=== PATIENT | female | born 1960 | race Caucasian/White ===

== ENCOUNTER 2018-09-13 14:07 | Emergency (ER) | payer OTHER ==
[~2018-09-13] VITALS: Ht 162.6 cm; Wt 68.0 kg
[~2018-09-13 14:07] MED LIST: ASPI81CH PO; GABA100 PO; INS70/30PN SC; INSDET100 IM; INSUASPI SC; LISI5 PO; METF500C PO; NITR100CA PO; Naprosyn500 MG PO; Norco 10-325 T1 EACH PO; OMEP20ER PO; PRAV20 PO
[2018-09-13 15:04] LABS: BASOPHILS ABSOLUTE AUTO 0.03 K/mm3 (0.00-0.23); BASOPHILS PERCENT AUTO 1 % (0-2); EOSINOPHILS ABSOLUTE AUTO 0.13 K/mm3 (0.00-0.68); EOSINOPHILS PERCENT AUTO 2 % (0-6); Hematocrit 44.8 % (33.0-51.0); Hemoglobin 15.2 g/dL (11.5-16.0); IMMATURE GRAN ABSOLUTE AUTO 0.02 K/mm3 (0.00-0.10); IMMATURE GRAN PERCENT AUTO 0 % (0-1); LYMPHOCYTES ABSOLUTE AUTO 1.78 K/mm3 (0.84-5.20); LYMPHOCYTES PERCENT AUTO 28 % (21-46); MONOCYTES ABSOLUTE AUTO 0.49 K/mm3 (0.16-1.47); MONOCYTES PERCENT AUTO 8 % (4-13); Mean Corpuscular HGB 29.8 pg (26.0-34.0); Mean Corpuscular HGB Conc 33.9 g/dL (31.5-36.5); Mean Corpuscular Volume 88 fL (80-100); Mean Platelet Volume 10.3 fL (9.1-12.4); NEUTROPHILS ABSOLUTE AUTO 3.98 K/mm3 (1.96-9.15); NEUTROPHILS PERCENT AUTO 62 % (41-73); Platelet Count 308 K/mm3 (150-400); RDW Coefficient Variation 12.3 % (11.7-14.2); RDW Standard Deviation 39.8 fL (35.1-46.3); White Blood Cell Count 6.43 K/mm3 (4.00-11.30)
[2018-09-13 15:10] LABS: Alanine Aminotransfer (ALT/SGP 17 U/L (12-78); Albumin, Blood 3.4 g/dL (3.4-5.0); Albumin/Globulin Ratio 0.8 (0.8-1.8); Alk Phos 83 U/L (50-136); Anion Gap 8 mmol/L (6-16); Aspartate Aminotrans (AST/SGOT 12 U/L (12-37); Bilirubin, Total 1.1 mg/dL (0.1-1.0); Blood Urea Nitrogen 12 mg/dL (8-24); Bun/Creatinine Ratio 27.8 (12.0-20.0); CO2, Blood 26 mmol/L (21-32); Chloride, Blood 102 mmol/L (98-108); Creatinine, Blood 0.43 mg/dL (0.40-1.00); Globulin, Blood 4.3 g/dL (2.2-4.0); Glomerular Filtration Rate >60 (60-); Glucose, Blood 308 mg/dL (70-99); Potassium, Blood 3.9 mmol/L (3.5-5.5); Sodium, Blood 136 mmol/L (136-145); Total Protein, Blood 7.7 g/dL (6.4-8.2)
[2018-09-13] MEDS ORDERED: LISI20 PO (15:57)
[2018-09-13] MEDS ORDERED: TOUJEO SOL300 UNIT/1 SC (15:58)
[2018-09-13] MEDS ORDERED: ONDA4ODT MM (16:22)
[2018-09-13] MEDS ORDERED: Augmentin 875-1 EACH PO (16:22)
== END 2018-09-13 17:03 | disposition home or self-care (01) ==
LOC: ER 14:07
PROVIDERS: Physician Assistant
DX: L03.115 Cellulitis of right lower limb (principal); Z79.899 Other long term (current) drug therapy; Z79.82 Long term (current) use of aspirin; Z79.4 Long term (current) use of insulin; E11.9 Type 2 diabetes mellitus without complications; I10 Essential (primary) hypertension
CPT/HCPCS: 36415; 73630; 80053; 82947; 85025; 96365; 96375; 99283-25; J2405; J2543

== ENCOUNTER 2018-10-04 19:48 | Inpatient (IN) | payer OTHER ==
[~2018-10-04] VITALS: Ht 162.6 cm; Wt 75.2 kg
[~2018-10-04 19:48] MED LIST changes: -ASPI81CH PO; +Aspirin EC81 MG PO; +Augmentin 875-1 EACH PO; +CEPH500 PO; -INSUASPI SC; +LISI20 PO; +ONDA4ODT MM; +TOUJEO SOL300 UNIT/1 SC
[2018-10-04 20:57] LABS: BASOPHILS ABSOLUTE AUTO 0.04 K/mm3 (0.00-0.23); BASOPHILS PERCENT AUTO 1 % (0-2); EOSINOPHILS ABSOLUTE AUTO 0.13 K/mm3 (0.00-0.68); EOSINOPHILS PERCENT AUTO 2 % (0-6); Hematocrit 39.9 % (33.0-51.0); Hemoglobin 13.5 g/dL (11.5-16.0); IMMATURE GRAN ABSOLUTE AUTO 0.02 K/mm3 (0.00-0.10); IMMATURE GRAN PERCENT AUTO 0 % (0-1); LYMPHOCYTES ABSOLUTE AUTO 1.88 K/mm3 (0.84-5.20); LYMPHOCYTES PERCENT AUTO 22 % (21-46); MONOCYTES ABSOLUTE AUTO 0.58 K/mm3 (0.16-1.47); MONOCYTES PERCENT AUTO 7 % (4-13); Mean Corpuscular HGB 29.3 pg (26.0-34.0); Mean Corpuscular HGB Conc 33.8 g/dL (31.5-36.5); Mean Corpuscular Volume 87 fL (80-100); Mean Platelet Volume 10.5 fL (9.1-12.4); NEUTROPHILS ABSOLUTE AUTO 5.99 K/mm3 (1.96-9.15); NEUTROPHILS PERCENT AUTO 69 % (41-73); Platelet Count 306 K/mm3 (150-400); RDW Coefficient Variation 12.3 % (11.7-14.2); RDW Standard Deviation 39.5 fL (35.1-46.3); White Blood Cell Count 8.64 K/mm3 (4.00-11.30)
[2018-10-04 21:12] LABS: Alanine Aminotransfer (ALT/SGP 15 U/L (12-78); Albumin, Blood 3.1 g/dL (3.4-5.0); Albumin/Globulin Ratio 0.8 (0.8-1.8); Alk Phos 83 U/L (50-136); Anion Gap 8 mmol/L (6-16); Aspartate Aminotrans (AST/SGOT <3 U/L (12-37); Bilirubin, Total 0.6 mg/dL (0.1-1.0); Blood Urea Nitrogen 18 mg/dL (8-24); Bun/Creatinine Ratio 39.6 (12.0-20.0); CO2, Blood 27 mmol/L (21-32); Calcium, Blood 8.7 mg/dL (8.5-10.1); Chloride, Blood 102 mmol/L (98-108); Creatinine, Blood 0.45 mg/dL (0.40-1.00); Globulin, Blood 3.9 g/dL (2.2-4.0); Glomerular Filtration Rate >60 (60-); Glucose, Blood 277 mg/dL (70-99); Sodium, Blood 137 mmol/L (136-145)
[2018-10-04] MEDS ORDERED: Novolog100 UNIT/2 SC ×2 (21:58→22:22)
[2018-10-04] MEDS ORDERED: Amlodipine Bes2.5 MG PO (21:59)
[2018-10-04] MEDS ORDERED: CLON.1 PO (21:59)
[2018-10-04] MEDS ORDERED: GLIP5ER PO (22:00)
[2018-10-04] MEDS ORDERED: ATEN50 PO (22:00)
[2018-10-04] MEDS ORDERED: Vitamin D2000 UNIT PO (22:02)
--- NOTE | 2018-10-05 04:58 | NUR ---
SHIFT SUMMARY PT NEW ADMIT LAST NIGHT AROUND 2300. AOX4. VSS. DENIES SOB, NAUSEA, PALPATIONS, DIZZINESS. REPORTS "VERY LITTLE PAIN" IN RT FOOT @ 2/10 ON PAIN SCALE, DENIES NEED FOR PAIN MEDICATION & THIS AM PT REPORTS NO PAIN IN FOOT. DORSAL RT FOOT IS RED, HOT TO TOUCH, W/+1 EDEMA & PLANTAR RT FOOT HAS 2CM X 2CM SCABBED WOUND W/O DRAINAGE, PICTURES TAKEN & PLACED IN CHART. PT IND IN ROOM W/STEADY BALANCED GAIT. HAS BEEN NPO SINCE MIDNIGHT PER ORDERS. CALL LIGHT IS IN REACH.
[2018-10-05 05:24] LABS: Hematocrit 38.3 % (33.0-51.0); Hemoglobin 12.8 g/dL (11.5-16.0); Mean Corpuscular HGB 29.2 pg (26.0-34.0); Mean Corpuscular HGB Conc 33.4 g/dL (31.5-36.5); Mean Corpuscular Volume 87 fL (80-100); Mean Platelet Volume 10.4 fL (9.1-12.4); Platelet Count 278 K/mm3 (150-400); RDW Coefficient Variation 12.1 % (11.7-14.2); RDW Standard Deviation 39.1 fL (35.1-46.3); Red Blood Cell Count 4.39 M/mm3 (3.80-5.20); White Blood Cell Count 6.72 K/mm3 (4.00-11.30)
[2018-10-05 05:58] LABS: Alanine Aminotransfer (ALT/SGP 11 U/L (12-78); Albumin, Blood 2.8 g/dL (3.4-5.0); Albumin/Globulin Ratio 0.7 (0.8-1.8); Alk Phos 70 U/L (50-136); Anion Gap 7 mmol/L (6-16); Aspartate Aminotrans (AST/SGOT 5 U/L (12-37); Bilirubin, Total 0.7 mg/dL (0.1-1.0); Blood Urea Nitrogen 14 mg/dL (8-24); Bun/Creatinine Ratio 38.3 (12.0-20.0); CO2, Blood 27 mmol/L (21-32); Calcium, Blood 8.2 mg/dL (8.5-10.1); Chloride, Blood 103 mmol/L (98-108); Creatinine, Blood 0.37 mg/dL (0.40-1.00); Globulin, Blood 3.8 g/dL (2.2-4.0); Glomerular Filtration Rate >60 (60-); Glucose, Blood 247 mg/dL (70-99); Potassium, Blood 3.9 mmol/L (3.5-5.5); Sodium, Blood 137 mmol/L (136-145); Total Protein, Blood 6.6 g/dL (6.4-8.2)
--- NOTE | 2018-10-05 08:20 | NUR ---
PROVIDER CONSULT CONSULT CALLED TO DR LEE, EDITOR TRADE JOURNAL, ON HIS CELL PHONE AT 0819 THIS MORNING.
--- NOTE | 2018-10-05 18:32 | NUR ---
PT TO BE NPO AFTER MIDNIGHT TONIGHT FOR SURGICAL PROCEDURE TOMORROW. NO C/O PAIN OR DISCOMFORT, NO ACUTE CHANGES NOTED THIS SHIFT, WILL CONTINUE TO MONITOR AND REPORT TO ONCOMING RN.
--- NOTE | 2018-10-06 06:48 | NUR ---
10/06/18 0600 NPO FOR SURGERY THIS AFTERNOON. VITALS GOOD THIS AM. HYDRALAZINE ORDERED FOR HYPERTENSION > 160 SYSTOLIC AND WAS GIVEN ONCE THIS SHIFT. SLEPT WELL. DENIED NEED FOR PAIN MEDS THIS SHIFT.
--- NOTE | 2018-10-06 16:10 | NUR ---
PT HAS BEEN TRANSPORTED TO OR FOR SURGICAL PROCEDURE.
--- NOTE | 2018-10-06 16:11 | NUR ---
History, Chart, Medications and Allergies reviewed before start of procedure. Patient confirms NPO status and agrees with scheduled surgery. Lungs clear T/O to Auscultation. PATIENT REMOVED HER RING IN SDS AND IT WILL BE TAKEN BACK TO HER ROOM.
--- NOTE | 2018-10-06 17:59 | NUR ---
PT ESCORTED OUT VIA W/C BY [facility]
--- NOTE | 2018-10-06 18:15 | NUR ---
PT RETURNED TO ROOM FROM PACU. SHE IS AWAKE, ALERT AND ORIENTED, DENIES PAIN AND NAUSEA. ASSISTED INTO BED. PT VOICES HUNGER, DINNER TRAY GIVEN. VITAL SIGNS STABLE. WILL CONTINUE TO MONITOR.
--- NOTE | 2018-10-06 18:33 | NUR ---
PT RETURNED FROM OR, NO C/O OF PAIN OR NAUSEA, AWAKE, ALERT AND ORIENTED, VITAL SIGNS STABLE. NO ACUTE CHANGES NOTED THIS SHIFT, WILL CONTINUE TO MONITOR AND REPORT TO ONCOMING RN
--- NOTE | 2018-10-07 05:57 | NUR ---
SHIFT SUMMARY: POST OP VITALS CONTINUE TO BE WNL. PT NWB TO R FT AND AWARE OF LIMITATIONS. RLE IS ELEVATED ON PILLOWS PER ORDERS. PT HAS MINOR PAIN TO SITE EARLY THIS AM, MEDICATED c 1MG DILAUDID IV WHICH PROVIDES OPTIMAL EFFECT. DRESSING TO R FT IS C/D/I, NO DRESSING CHANGES TO BE DONE UNTIL PT F/U c OUTPATIENT PHYSICIAN, ORDERED. LS CLEAR, RESP E/U ON RA. CBG 278 TONIGHT; ADMINISTERED HUMALOG AND LANTUS PER ORDERS; SEE EMAR. NO OTHER CHANGES TO REPORT. WILL CONT TO MONITOR AND PROVIDE CARE UNTIL PRESUMED BY ONCOMING RN.
[2018-10-07] MEDS ORDERED: ROXICODONE5 MG PO (15:51)
[2018-10-07] MEDS ORDERED: Florastor250 MG PO (15:51)
[2018-10-07] MEDS ORDERED: NOVOLOG FL100 UNIT/1 SC (15:51)
[2018-10-07] MEDS ORDERED: Bactrim Ds Tab1 EACH PO (15:52)
--- NOTE | 2018-10-07 16:56 | NUR ---
10/07/18 1656 Marti Santos CHART VERIFICATIONS, EDITS.
--- NOTE | 2018-10-07 17:00 | NUR ---
PT REPORTED THAT HER RING WAS SENT UP AFTER HER SURGERY BUT SHE COULD NOT LOCATE IT, FOUND THE RIGHT IN THE LOCKED DRAWER AND RETURNED IT TO THE PT.
--- NOTE | 2018-10-07 17:13 | NUR ---
SPOKE WITH DR LEE WHO REPORTS PT IS OK TO DISCHARGE HOME FROM HIS STANDPOINT, PT TO REMAIN NON WEIGHT BEARING AND TO KEEP RIGHT LEG ELEVATED AND DRESSING INTACT UNTIL SEEN IN OFFICE. F/U APPOINTMENT SCHEDULED FOR 10/13. DR WINTERS NOTIFIED OF THIS AND DISCHARGE ORDERS PLACED ALONG WITH HARD SCRIPT FOR OXYCODONE, CRUTCHES, AND SCOOTER. MEDS FAXED TO [facility]. F/U APPT MADE WITH PCP FOR THE . PT REMINDED ON MULTIPLE OCCASIONS T/O THE SHIFT TO NOT BEAR ANY WEIGHT ON RLE. DISCHARGE INSTRUCTIONS REVIEWED WITH PT AND IV DC'D INTACT BY RN STUDENT. PT DC'D HOME AT 1716, ESCORTED OUT VIA W/C.
== END 2018-10-07 17:17 | disposition home or self-care (01) | DRG 617 ==
LOC: ER 19:48 → MEDS 21:45 → ER 22:33 → MEDS 22:46 → ER 22:46 → MEDS 22:46 → ENPENDDIS 10-07 15:15 → MEDS 10-07 17:17
PROVIDERS: Physician Assistant; Podiatrist Foot & Ankle Surgery; ADMIT Internal Medicine
PROC: 0Y6X0Z3 Detachment at Right 5th Toe, Low, Open Approach (ICD-10-PCS; principal; 2018-10-06 17:10)
DX: E11.621 Type 2 diabetes mellitus with foot ulcer (principal); M86.171 Other acute osteomyelitis, right ankle and foot; L03.115 Cellulitis of right lower limb; I10 Essential (primary) hypertension; E78.5 Hyperlipidemia, unspecified; Z79.4 Long term (current) use of insulin; E66.9 Obesity, unspecified; E11.40 Type 2 diabetes mellitus with diabetic neuropathy, unspecified; Z68.25 Body mass index [BMI] 25.0-25.9, adult; L97.514 Non-pressure chronic ulcer of other part of right foot with necrosis of bone
CPT/HCPCS: 36415; 73630; 80053; 82947; 85025; 85027; 88305; 88311; 96365; 99284-25; J0360; J1170; J1650; J2250; J2405; J2543; J2704; J3010; J7050; J7120

== ENCOUNTER 2018-12-28 16:53 | Emergency (ER) | payer OTHER ==
[~2018-12-28] VITALS: Ht 162.6 cm; Wt 73.0 kg
[~2018-12-28 16:53] MED LIST changes: +ATEN50 PO; +Bactrim Ds Tab1 EACH PO; +CLON.1 PO; +Florastor250 MG PO; +GLIP5ER PO; +NOVOLOG FL100 UNIT/1 SC; +Norvasc10 MG PO; +Novolog100 UNIT/2 SC; +ROXICODONE5 MG PO; +Vitamin D2000 UNIT PO
[2018-12-28 17:25] LABS: BASOPHILS ABSOLUTE AUTO 0.02 K/mm3 (0.00-0.23); BASOPHILS PERCENT AUTO 0 % (0-2); EOSINOPHILS ABSOLUTE AUTO 0.12 K/mm3 (0.00-0.68); EOSINOPHILS PERCENT AUTO 2 % (0-6); Hematocrit 43.1 % (33.0-51.0); Hemoglobin 15.1 g/dL (11.5-16.0); IMMATURE GRAN ABSOLUTE AUTO 0.01 K/mm3 (0.00-0.10); IMMATURE GRAN PERCENT AUTO 0 % (0-1); LYMPHOCYTES ABSOLUTE AUTO 1.64 K/mm3 (0.84-5.20); LYMPHOCYTES PERCENT AUTO 29 % (21-46); MONOCYTES ABSOLUTE AUTO 0.37 K/mm3 (0.16-1.47); MONOCYTES PERCENT AUTO 7 % (4-13); Mean Corpuscular Volume 86 fL (80-100); Mean Platelet Volume 10.1 fL (9.1-12.4); NEUTROPHILS ABSOLUTE AUTO 3.41 K/mm3 (1.96-9.15); NEUTROPHILS PERCENT AUTO 61 % (41-73); Platelet Count 274 K/mm3 (150-400); RDW Coefficient Variation 13.1 % (11.7-14.2); RDW Standard Deviation 41.1 fL (35.1-46.3); Red Blood Cell Count 5.04 M/mm3 (3.80-5.20); White Blood Cell Count 5.57 K/mm3 (4.00-11.30)
[2018-12-28 17:45] LABS: International Normalized Ratio 0.94
[2018-12-28 17:59] LABS: Alanine Aminotransfer (ALT/SGP 20 U/L (12-78); Albumin, Blood 3.6 g/dL (3.4-5.0); Alk Phos 90 U/L (50-136); Anion Gap 7 mmol/L (6-16); Aspartate Aminotrans (AST/SGOT 9 U/L (12-37); Bilirubin, Total 1.2 mg/dL (0.1-1.0); Blood Urea Nitrogen 10 mg/dL (8-24); Bun/Creatinine Ratio 28.5 (12.0-20.0); CO2, Blood 24 mmol/L (21-32); Calcium, Blood 8.9 mg/dL (8.5-10.1); Chloride, Blood 104 mmol/L (98-108); Creatinine, Blood 0.35 mg/dL (0.40-1.00); Globulin, Blood 3.7 g/dL (2.2-4.0); Glomerular Filtration Rate >60 (60-); Glucose, Blood 275 mg/dL (70-99); Potassium, Blood 3.4 mmol/L (3.5-5.5); Sodium, Blood 135 mmol/L (136-145); Total Protein, Blood 7.3 g/dL (6.4-8.2)
== END 2018-12-28 20:20 | disposition short-term general hospital (02) ==
LOC: ER 16:53
PROVIDERS: Emergency Medicine
DX: I61.9 Nontraumatic intracerebral hemorrhage, unspecified (principal); I10 Essential (primary) hypertension; E11.9 Type 2 diabetes mellitus without complications; Z79.899 Other long term (current) drug therapy; Z79.82 Long term (current) use of aspirin; Z79.4 Long term (current) use of insulin
CPT/HCPCS: 36415; 51702; 70450; 80053; 85025; 85610; 85730; 93005; 93010; 96365-59; 96366-59; 96375-59; 99285-25; J3010; J7050

== ENCOUNTER 2019-02-08 11:17 | Emergency (ER) | payer OTHER ==
[~2019-02-08] VITALS: Ht 167.6 cm; Wt 83.9 kg
[2019-02-08] MEDS ORDERED: ACET325 PO (11:46)
[2019-02-08] MEDS ORDERED: ADMELOG SO100 UNIT/1 SC (11:46)
[2019-02-08] MEDS ORDERED: Lipitor80 MG PO (11:48)
[2019-02-08] MEDS ORDERED: GABA100 PO (11:49)
[2019-02-08] MEDS ORDERED: HYDRA25 PO (11:50)
[2019-02-08 11:51] LABS: BASOPHILS ABSOLUTE AUTO 0.03 K/mm3 (0.00-0.23); BASOPHILS PERCENT AUTO 0 % (0-2); EOSINOPHILS ABSOLUTE AUTO 0.26 K/mm3 (0.00-0.68); EOSINOPHILS PERCENT AUTO 3 % (0-6); Hematocrit 44.6 % (33.0-51.0); Hemoglobin 15.2 g/dL (11.5-16.0); IMMATURE GRAN ABSOLUTE AUTO 0.02 K/mm3 (0.00-0.10); IMMATURE GRAN PERCENT AUTO 0 % (0-1); LYMPHOCYTES ABSOLUTE AUTO 1.05 K/mm3 (0.84-5.20); LYMPHOCYTES PERCENT AUTO 12 % (21-46); MONOCYTES ABSOLUTE AUTO 0.55 K/mm3 (0.16-1.47); MONOCYTES PERCENT AUTO 6 % (4-13); Mean Corpuscular HGB 29.7 pg (26.0-34.0); Mean Corpuscular HGB Conc 34.1 g/dL (31.5-36.5); Mean Corpuscular Volume 87 fL (80-100); Mean Platelet Volume 10.2 fL (9.1-12.4); NEUTROPHILS ABSOLUTE AUTO 6.77 K/mm3 (1.96-9.15); NEUTROPHILS PERCENT AUTO 78 % (41-73); Platelet Count 260 K/mm3 (150-400); RDW Coefficient Variation 12.5 % (11.7-14.2); RDW Standard Deviation 40.3 fL (35.1-46.3); Red Blood Cell Count 5.11 M/mm3 (3.80-5.20); White Blood Cell Count 8.68 K/mm3 (4.00-11.30)
[2019-02-08] MEDS ORDERED: MIRALAX17 GM PO (11:51)
[2019-02-08] MEDS ORDERED: OXYC5 PO (11:51)
[2019-02-08] MEDS ORDERED: Senna8.6 MG PO (11:52)
[2019-02-08] MEDS ORDERED: SERT25 PO (11:52)
[2019-02-08 12:22] LABS: Troponin I <0.015 ng/mL (0.000-0.040)
[2019-02-08 12:33] LABS: Alanine Aminotransfer (ALT/SGP 20 U/L (12-78); Albumin, Blood 3.9 g/dL (3.4-5.0); Alk Phos 86 U/L (50-136); Anion Gap 9 mmol/L (6-16); Aspartate Aminotrans (AST/SGOT 7 U/L (12-37); Bilirubin, Total 1.4 mg/dL (0.1-1.0); Blood Urea Nitrogen 8 mg/dL (8-24); Bun/Creatinine Ratio 23.4 (12.0-20.0); CO2, Blood 26 mmol/L (21-32); Chloride, Blood 103 mmol/L (98-108); Creatinine, Blood 0.34 mg/dL (0.40-1.00); Globulin, Blood 4.1 g/dL (2.2-4.0); Glomerular Filtration Rate >60 (60-); Glucose, Blood 162 mg/dL (70-99); Potassium, Blood 3.4 mmol/L (3.5-5.5); Sodium, Blood 138 mmol/L (136-145)
[2019-02-08] MEDS ORDERED: Toprol Xl50 MG PO (12:51)
== END 2019-02-08 13:37 | disposition home or self-care (01) ==
LOC: ER 11:17
PROVIDERS: Emergency Medicine
DX: R51 Headache (principal); I10 Essential (primary) hypertension; E11.9 Type 2 diabetes mellitus without complications; Z86.73 Personal history of transient ischemic attack (TIA), and cerebral infarction without residual deficits; E78.5 Hyperlipidemia, unspecified; Z79.899 Other long term (current) drug therapy; Z79.4 Long term (current) use of insulin; Z79.82 Long term (current) use of aspirin
CPT/HCPCS: 36415; 71046; 80053; 84484; 85025; 93005; 93010; 99284-25; A9270

== ENCOUNTER 2019-05-02 18:35 | Emergency (ER) | payer OTHER ==
[~2019-05-02] VITALS: Ht 162.6 cm; Wt 72.6 kg
[~2019-05-02 18:35] MED LIST changes: +ACET325 PO; +ADMELOG SO100 UNIT/1 SC; +HYDRA25 PO; +Lipitor80 MG PO; +MIRALAX17 GM PO; +OXYC5 PO; +SERT25 PO; +Senna8.6 MG PO; +Toprol Xl50 MG PO
[2019-05-02 19:08] LABS: BASOPHILS ABSOLUTE AUTO 0.03 K/mm3 (0.00-0.23); BASOPHILS PERCENT AUTO 1 % (0-2); EOSINOPHILS ABSOLUTE AUTO 0.18 K/mm3 (0.00-0.68); EOSINOPHILS PERCENT AUTO 3 % (0-6); Hematocrit 41.9 % (33.0-51.0); Hemoglobin 14.2 g/dL (11.5-16.0); IMMATURE GRAN ABSOLUTE AUTO 0.01 K/mm3 (0.00-0.10); IMMATURE GRAN PERCENT AUTO 0 % (0-1); LYMPHOCYTES ABSOLUTE AUTO 1.76 K/mm3 (0.84-5.20); LYMPHOCYTES PERCENT AUTO 31 % (21-46); MONOCYTES ABSOLUTE AUTO 0.41 K/mm3 (0.16-1.47); MONOCYTES PERCENT AUTO 7 % (4-13); Mean Corpuscular HGB 29.8 pg (26.0-34.0); Mean Corpuscular HGB Conc 33.9 g/dL (31.5-36.5); Mean Corpuscular Volume 88 fL (80-100); Mean Platelet Volume 10.3 fL (9.1-12.4); NEUTROPHILS ABSOLUTE AUTO 3.31 K/mm3 (1.96-9.15); NEUTROPHILS PERCENT AUTO 58 % (41-73); Platelet Count 276 K/mm3 (150-400); RDW Coefficient Variation 12.6 % (11.7-14.2); RDW Standard Deviation 41.1 fL (35.1-46.3); Red Blood Cell Count 4.76 M/mm3 (3.80-5.20)
[2019-05-02] MEDS ORDERED: ADMELOG SO100 UNIT/1 SC (19:12)
[2019-05-02] MEDS ORDERED: BASAGLAR K100 UNIT/2 SC (19:12)
[2019-05-02] MEDS ORDERED: ATOR80 PO (19:12)
[2019-05-02] MEDS ORDERED: Aspirin EC81 MG PO (19:12)
[2019-05-02] MEDS ORDERED: AMLO10 PO (19:12)
[2019-05-02] MEDS ORDERED: SERT25 PO (19:13)
[2019-05-02] MEDS ORDERED: GABA100 PO (19:13)
[2019-05-02] MEDS ORDERED: LISI20 PO (19:13)
[2019-05-02] MEDS ORDERED: SENNA LAXATIVE8.6 MG PO (19:13)
[2019-05-02] MEDS ORDERED: Vitamin D2000 UNIT PO (19:13)
[2019-05-02 19:28] LABS: Troponin I <0.015 ng/mL (0.000-0.040)
[2019-05-02 19:29] LABS: Alanine Aminotransfer (ALT/SGP 20 U/L (12-78); Albumin, Blood 3.6 g/dL (3.4-5.0); Albumin/Globulin Ratio 0.9 (0.8-1.8); Alk Phos 81 U/L (50-136); Anion Gap 6 mmol/L (6-16); Aspartate Aminotrans (AST/SGOT 17 U/L (12-37); Bilirubin, Total 1.2 mg/dL (0.1-1.0); Blood Urea Nitrogen 17 mg/dL (8-24); Bun/Creatinine Ratio 35.6 (12.0-20.0); CO2, Blood 25 mmol/L (21-32); Calcium, Blood 8.9 mg/dL (8.5-10.1); Chloride, Blood 107 mmol/L (98-108); Creatinine, Blood 0.48 mg/dL (0.40-1.00); Globulin, Blood 4.2 g/dL (2.2-4.0); Glomerular Filtration Rate >60 (60-); Glucose, Blood 151 mg/dL (70-99); Potassium, Blood 3.9 mmol/L (3.5-5.5); Sodium, Blood 138 mmol/L (136-145); Total Protein, Blood 7.8 g/dL (6.4-8.2)
== END 2019-05-02 21:08 | disposition home or self-care (01) ==
LOC: ER 18:35
PROVIDERS: Physician Assistant
DX: I10 Essential (primary) hypertension (principal); E11.9 Type 2 diabetes mellitus without complications; Z79.899 Other long term (current) drug therapy; Z79.4 Long term (current) use of insulin; Z79.82 Long term (current) use of aspirin
CPT/HCPCS: 36415; 71046; 80053; 84484; 85025; 93005; 93010; 96374; 96375; 96376; 99285-25; J0780; J1885

== ENCOUNTER 2019-06-09 14:47 | Emergency (ER) | payer OTHER ==
[~2019-06-09] VITALS: Ht 162.6 cm; Wt 72.6 kg
[~2019-06-09 14:47] MED LIST changes: +AMLO10 PO; +ATOR80 PO; +BASAGLAR K100 UNIT/2 SC; +SENNA LAXATIVE8.6 MG PO
[2019-06-09] MEDS ORDERED: Veetids 500500 MG PO (17:06)
== END 2019-06-09 17:34 | disposition home or self-care (01) ==
LOC: ER 14:47
DX: J02.9 Acute pharyngitis, unspecified (principal); E11.9 Type 2 diabetes mellitus without complications; N17.9 Acute kidney failure, unspecified; I10 Essential (primary) hypertension; Z79.82 Long term (current) use of aspirin; Z79.4 Long term (current) use of insulin; Z79.899 Other long term (current) drug therapy
CPT/HCPCS: 99282

== ENCOUNTER 2019-06-20 10:31 | Emergency (ER) | payer OTHER ==
[~2019-06-20] VITALS: Ht 162.6 cm; Wt 72.6 kg
[~2019-06-20 10:31] MED LIST changes: +Veetids 500500 MG PO
[2019-06-20 11:11] LABS: Source, Urine Clean Catch
[2019-06-20 11:19] LABS: BASOPHILS ABSOLUTE AUTO 0.01 K/mm3 (0.00-0.23); BASOPHILS PERCENT AUTO 0 % (0-2); EOSINOPHILS ABSOLUTE AUTO 0.04 K/mm3 (0.00-0.68); EOSINOPHILS PERCENT AUTO 1 % (0-6); Hematocrit 42.8 % (33.0-51.0); Hemoglobin 14.6 g/dL (11.5-16.0); IMMATURE GRAN ABSOLUTE AUTO 0.01 K/mm3 (0.00-0.10); IMMATURE GRAN PERCENT AUTO 0 % (0-1); LYMPHOCYTES ABSOLUTE AUTO 0.76 K/mm3 (0.84-5.20); LYMPHOCYTES PERCENT AUTO 22 % (21-46); MONOCYTES ABSOLUTE AUTO 0.36 K/mm3 (0.16-1.47); MONOCYTES PERCENT AUTO 10 % (4-13); Mean Corpuscular HGB 29.4 pg (26.0-34.0); Mean Corpuscular HGB Conc 34.1 g/dL (31.5-36.5); Mean Corpuscular Volume 86 fL (80-100); Mean Platelet Volume 10.4 fL (9.1-12.4); NEUTROPHILS ABSOLUTE AUTO 2.27 K/mm3 (1.96-9.15); NEUTROPHILS PERCENT AUTO 66 % (41-73); Platelet Count 186 K/mm3 (150-400); RDW Coefficient Variation 12.4 % (11.7-14.2); RDW Standard Deviation 39.2 fL (35.1-46.3); Red Blood Cell Count 4.97 M/mm3 (3.80-5.20); White Blood Cell Count 3.45 K/mm3 (4.00-11.30)
[2019-06-20 11:20] LABS: Bilirubin, Urine Neg (Neg); Blood, Urine Neg (Neg); Glucose Qualitative, Urine Neg (Neg); Ketones, Urine 1+ (Neg); Leukocyte Esterase, Urine 1+ (Neg); Nitrite, Urine Neg (Neg); Protein, Urine 2+ (Neg); Specific Gravity, Urine 1.025 (1.003-1.022); Urobilinogen, Urine 1+ (Normal)
[2019-06-20 11:34] LABS: Alanine Aminotransfer (ALT/SGP 21 U/L (12-78); Albumin, Blood 3.5 g/dL (3.4-5.0); Albumin/Globulin Ratio 0.9 (0.8-1.8); Alk Phos 80 U/L (50-136); Anion Gap 6 mmol/L (6-16); Aspartate Aminotrans (AST/SGOT 18 U/L (12-37); Blood Urea Nitrogen 12 mg/dL (8-24); Bun/Creatinine Ratio 22.7 (12.0-20.0); CO2, Blood 29 mmol/L (21-32); Calcium, Blood 8.4 mg/dL (8.5-10.1); Chloride, Blood 103 mmol/L (98-108); Creatinine, Blood 0.53 mg/dL (0.40-1.00); Globulin, Blood 4.1 g/dL (2.2-4.0); Glomerular Filtration Rate >60 (60-); Glucose, Blood 151 mg/dL (70-99); Potassium, Blood 3.5 mmol/L (3.5-5.5); Sodium, Blood 138 mmol/L (136-145); Total Protein, Blood 7.6 g/dL (6.4-8.2)
[2019-06-20 11:35] LABS: Appearance, Urine Cloudy (Clear); Color, Urine Yellow (P-Yellow)
[2019-06-20 11:36] LABS: Bacteria Few /hpf; Red Blood Cells, Urine 0-2 /hpf (0-2); Squamous Epithelial Cells Mod /hpf (Few)
== END 2019-06-20 12:34 | disposition home or self-care (01) ==
LOC: ER 10:31
PROVIDERS: Emergency Medicine
DX: J02.8 Acute pharyngitis due to other specified organisms (principal); E86.0 Dehydration; E11.9 Type 2 diabetes mellitus without complications; I10 Essential (primary) hypertension; Z79.899 Other long term (current) drug therapy; Z79.4 Long term (current) use of insulin; Z79.82 Long term (current) use of aspirin; Z86.73 Personal history of transient ischemic attack (TIA), and cerebral infarction without residual deficits
CPT/HCPCS: 36415; 80053; 81001; 83690; 85025; 87081; 87086; 87430; 96360; 99284-25; J7030

== ENCOUNTER 2019-11-10 12:57 | Emergency (ER) | payer OTHER ==
[~2019-11-10] VITALS: Ht 162.6 cm; Wt 68.0 kg
== END 2019-11-10 16:44 | disposition home or self-care (01) ==
LOC: ER 12:57
DX: S09.90XA Unspecified injury of head, initial encounter (principal); S20.212A Contusion of left front wall of thorax, initial encounter; E11.9 Type 2 diabetes mellitus without complications; I10 Essential (primary) hypertension; N17.9 Acute kidney failure, unspecified; Z79.4 Long term (current) use of insulin; Z79.899 Other long term (current) drug therapy; E78.5 Hyperlipidemia, unspecified; Z86.73 Personal history of transient ischemic attack (TIA), and cerebral infarction without residual deficits; W19.XXXA Unspecified fall, initial encounter
CPT/HCPCS: 70450; 71101; 93005; 93010; 99284-25; A9270

== ENCOUNTER → 2019-12-24 | Outpatient (CLI) | payer OTHER ==
[2019-12-24 15:05] LABS: Creatinine, Urine Random 91.6 mg/dL (27.00-270.00); Microalb/Creat Ratio UR, Rand 46.288 mg/g (0.000-30.000); Microalbumin, Random Urine 42.4 mg/L (0.000-20.000)
== END | disposition home or self-care (01) ==
LOC: LAB 11:50 → LAB SHORT 11:50 → LAB FUT 08-11 11:55
PROVIDERS: Family Medicine
DX: E11.65 Type 2 diabetes mellitus with hyperglycemia (principal)
CPT/HCPCS: 82043; 82570

== ENCOUNTER → 2020-09-07 | Outpatient (CLI) | payer OTHER ==
[2020-09-08 15:09] LABS: HPV 16 Negative (Negative); HPV 18 Negative (Negative); HPV OTHER HR TYPES Negative (Negative)
== END | disposition home or self-care (01) ==
LOC: LAB SHORT 13:55
PROVIDERS: Physician Assistant
DX: Z01.419 Encounter for gynecological examination (general) (routine) without abnormal findings (principal)
CPT/HCPCS: 87624; G0123

== ENCOUNTER 2020-11-15 18:17 | Emergency (ER) | payer OTHER ==
[~2020-11-15] VITALS: Ht 162.6 cm; Wt 72.6 kg
[2020-11-15 19:07] LABS: BASOPHILS ABSOLUTE AUTO 0.02 K/mm3 (0.00-0.23); BASOPHILS PERCENT AUTO 0 % (0-2); EOSINOPHILS PERCENT AUTO 3 % (0-6); Hematocrit 39.3 % (33.0-51.0); Hemoglobin 13.5 g/dL (11.5-16.0); IMMATURE GRAN ABSOLUTE AUTO 0.02 K/mm3 (0.00-0.10); IMMATURE GRAN PERCENT AUTO 0 % (0-1); LYMPHOCYTES PERCENT AUTO 33 % (21-46); MONOCYTES ABSOLUTE AUTO 0.44 K/mm3 (0.16-1.47); MONOCYTES PERCENT AUTO 7 % (4-13); Mean Corpuscular HGB 29.5 pg (26.0-34.0); Mean Corpuscular HGB Conc 34.4 g/dL (31.5-36.5); Mean Corpuscular Volume 86 fL (80-100); Mean Platelet Volume 10.1 fL (9.1-12.4); NEUTROPHILS ABSOLUTE AUTO 3.53 K/mm3 (1.96-9.15); NEUTROPHILS PERCENT AUTO 56 % (41-73); Platelet Count 265 K/mm3 (150-400); RDW Coefficient Variation 13.2 % (11.7-14.2); RDW Standard Deviation 41.3 fL (35.1-46.3); Red Blood Cell Count 4.57 M/mm3 (3.80-5.20); White Blood Cell Count 6.31 K/mm3 (4.00-11.30)
[2020-11-15 19:26] LABS: Alanine Aminotransfer (ALT/SGP 35 U/L (12-78); Albumin, Blood 3.5 g/dL (3.4-5.0); Albumin/Globulin Ratio 0.9 (0.8-1.8); Alk Phos 100 U/L (50-136); Anion Gap 7 mmol/L (6-16); Aspartate Aminotrans (AST/SGOT 17 U/L (12-37); Bilirubin, Total 0.7 mg/dL (0.1-1.0); Blood Urea Nitrogen 21 mg/dL (8-24); Bun/Creatinine Ratio 32.3 (12.0-20.0); CO2, Blood 25 mmol/L (21-32); Chloride, Blood 111 mmol/L (98-108); Creatinine, Blood 0.65 mg/dL (0.40-1.00); Globulin, Blood 4.1 g/dL (2.2-4.0); Glomerular Filtration Rate >60 (60-); Glucose, Blood 158 mg/dL (70-99); Potassium, Blood 3.9 mmol/L (3.5-5.5); Sodium, Blood 143 mmol/L (136-145); Total Protein, Blood 7.6 g/dL (6.4-8.2)
[2020-11-15 20:44] LABS: Source, Urine Clean Catch
[2020-11-15 20:47] LABS: Bilirubin, Urine Neg (Neg); Blood, Urine Neg (Neg); Glucose Qualitative, Urine Neg (Neg); Ketones, Urine Neg (Neg); Leukocyte Esterase, Urine 1+ (Neg); Nitrite, Urine Neg (Neg); Protein, Urine Neg (Neg); Urobilinogen, Urine NORM (Normal)
[2020-11-15 20:52] LABS: Appearance, Urine Clear (Clear); Color, Urine Yellow (P-Yellow)
[2020-11-15 20:54] LABS: Bacteria Few /hpf; Red Blood Cells, Urine Not Seen /hpf (0-2); Squamous Epithelial Cells Rare /hpf (Few); White Blood Cells, Urine Rare /hpf (0-5)
== END 2020-11-15 21:45 | disposition home or self-care (01) ==
LOC: ER 18:17
PROVIDERS: Physician Assistant
DX: R10.31 Right lower quadrant pain (principal); I10 Essential (primary) hypertension; E11.9 Type 2 diabetes mellitus without complications; Z79.4 Long term (current) use of insulin; Z79.82 Long term (current) use of aspirin; Z79.899 Other long term (current) drug therapy; Z86.73 Personal history of transient ischemic attack (TIA), and cerebral infarction without residual deficits
CPT/HCPCS: 36415; 74177; 80053; 81001; 85025; 87086; 99284-25; Q9967

== ENCOUNTER 2020-12-15 16:22 | Emergency (ER) | payer OTHER ==
[~2020-12-15] VITALS: Ht 162.6 cm; Wt 72.6 kg
[2020-12-15 16:50] LABS: BASOPHILS ABSOLUTE AUTO 0.06 K/mm3 (0.00-0.23); BASOPHILS PERCENT AUTO 1 % (0-2); EOSINOPHILS ABSOLUTE AUTO 0.34 K/mm3 (0.00-0.68); EOSINOPHILS PERCENT AUTO 4 % (0-6); Hematocrit 40.6 % (33.0-51.0); Hemoglobin 13.7 g/dL (11.5-16.0); IMMATURE GRAN ABSOLUTE AUTO 0.05 K/mm3 (0.00-0.10); IMMATURE GRAN PERCENT AUTO 1 % (0-1); LYMPHOCYTES ABSOLUTE AUTO 2.64 K/mm3 (0.84-5.20); LYMPHOCYTES PERCENT AUTO 27 % (21-46); MONOCYTES ABSOLUTE AUTO 0.62 K/mm3 (0.16-1.47); MONOCYTES PERCENT AUTO 6 % (4-13); Mean Corpuscular HGB 29.7 pg (26.0-34.0); Mean Corpuscular HGB Conc 33.7 g/dL (31.5-36.5); Mean Corpuscular Volume 88 fL (80-100); Mean Platelet Volume 10.4 fL (9.1-12.4); NEUTROPHILS ABSOLUTE AUTO 6.05 K/mm3 (1.96-9.15); NEUTROPHILS PERCENT AUTO 62 % (41-73); Platelet Count 286 K/mm3 (150-400); RDW Coefficient Variation 13.4 % (11.7-14.2); RDW Standard Deviation 42.9 fL (35.1-46.3); Red Blood Cell Count 4.61 M/mm3 (3.80-5.20); White Blood Cell Count 9.76 K/mm3 (4.00-11.30)
[2020-12-15 17:12] LABS: Alanine Aminotransfer (ALT/SGP 29 U/L (12-78); Albumin, Blood 3.5 g/dL (3.4-5.0); Albumin/Globulin Ratio 0.9 (0.8-1.8); Alk Phos 99 U/L (50-136); Anion Gap 3 mmol/L (6-16); Aspartate Aminotrans (AST/SGOT 13 U/L (12-37); Bilirubin, Total 0.9 mg/dL (0.1-1.0); Blood Urea Nitrogen 27 mg/dL (8-24); Bun/Creatinine Ratio 43.1 (12.0-20.0); CO2, Blood 28 mmol/L (21-32); Calcium, Blood 8.8 mg/dL (8.5-10.1); Chloride, Blood 107 mmol/L (98-108); Creatinine, Blood 0.63 mg/dL (0.40-1.00); Globulin, Blood 3.7 g/dL (2.2-4.0); Glomerular Filtration Rate >60 (60-); Glucose, Blood 258 mg/dL (70-99); Potassium, Blood 4.2 mmol/L (3.5-5.5); Sodium, Blood 138 mmol/L (136-145); Total Protein, Blood 7.2 g/dL (6.4-8.2)
== END 2020-12-15 18:08 | disposition home or self-care (01) ==
LOC: ER 16:22
PROVIDERS: Physician Assistant
DX: M86.9 Osteomyelitis, unspecified (principal); E11.9 Type 2 diabetes mellitus without complications; I10 Essential (primary) hypertension; Z79.899 Other long term (current) drug therapy; Z79.4 Long term (current) use of insulin
CPT/HCPCS: 36415; 80053; 85025; 99283

== ENCOUNTER 2021-01-01 08:00 | Day surgery (SDC) | payer OTHER | END 2021-01-01 23:59 | disposition home or self-care (01) | LOC: WOUND 08:00 | DX: E11.621 Type 2 diabetes mellitus with foot ulcer (principal); L97.422 Non-pressure chronic ulcer of left heel and midfoot with fat layer exposed; L97.412 Non-pressure chronic ulcer of right heel and midfoot with fat layer exposed; L89.892 Pressure ulcer of other site, stage 2; E11.42 Type 2 diabetes mellitus with diabetic polyneuropathy; E11.59 Type 2 diabetes mellitus with other circulatory complications; I87.2 Venous insufficiency (chronic) (peripheral) | CPT/HCPCS: A9270; G0463 ==

== ENCOUNTER 2021-01-08 02:57 | Day surgery (SDC) | payer OTHER | END 2021-01-08 23:55 | disposition home or self-care (01) | LOC: WOUND 02:57 | DX: E11.621 Type 2 diabetes mellitus with foot ulcer (principal); L97.522 Non-pressure chronic ulcer of other part of left foot with fat layer exposed; L97.512 Non-pressure chronic ulcer of other part of right foot with fat layer exposed; E11.42 Type 2 diabetes mellitus with diabetic polyneuropathy; E11.59 Type 2 diabetes mellitus with other circulatory complications; I87.2 Venous insufficiency (chronic) (peripheral); I10 Essential (primary) hypertension | CPT/HCPCS: A9270; G0463 ==

== ENCOUNTER 2021-01-22 03:03 | Day surgery (SDC) | payer OTHER | END 2021-01-22 23:04 | disposition home or self-care (01) | LOC: WOUND 03:03 | DX: E11.621 Type 2 diabetes mellitus with foot ulcer (principal); L97.522 Non-pressure chronic ulcer of other part of left foot with fat layer exposed; L89.892 Pressure ulcer of other site, stage 2; E11.42 Type 2 diabetes mellitus with diabetic polyneuropathy; E11.59 Type 2 diabetes mellitus with other circulatory complications; I87.2 Venous insufficiency (chronic) (peripheral); I10 Essential (primary) hypertension | CPT/HCPCS: G0463 ==

== ENCOUNTER 2021-02-03 13:42 | Emergency (ER) | payer OTHER ==
[~2021-02-03] VITALS: Ht 162.6 cm; Wt 72.6 kg
[2021-02-03 14:13] LABS: BASOPHILS ABSOLUTE AUTO 0.03 K/mm3 (0.00-0.23); BASOPHILS PERCENT AUTO 0 % (0-2); EOSINOPHILS ABSOLUTE AUTO 0.12 K/mm3 (0.00-0.68); EOSINOPHILS PERCENT AUTO 1 % (0-6); Hematocrit 39.2 % (33.0-51.0); Hemoglobin 13.2 g/dL (11.5-16.0); IMMATURE GRAN ABSOLUTE AUTO 0.03 K/mm3 (0.00-0.10); IMMATURE GRAN PERCENT AUTO 0 % (0-1); LYMPHOCYTES ABSOLUTE AUTO 1.43 K/mm3 (0.84-5.20); LYMPHOCYTES PERCENT AUTO 13 % (21-46); MONOCYTES PERCENT AUTO 6 % (4-13); Mean Corpuscular HGB Conc 33.7 g/dL (31.5-36.5); Mean Corpuscular Volume 89 fL (80-100); Mean Platelet Volume 9.9 fL (9.1-12.4); NEUTROPHILS ABSOLUTE AUTO 8.64 K/mm3 (1.96-9.15); NEUTROPHILS PERCENT AUTO 79 % (41-73); Platelet Count 325 K/mm3 (150-400); RDW Coefficient Variation 12.7 % (11.7-14.2); RDW Standard Deviation 41.6 fL (35.1-46.3); White Blood Cell Count 10.95 K/mm3 (4.00-11.30)
[2021-02-03 14:47] LABS: Alanine Aminotransfer (ALT/SGP 21 U/L (12-78); Albumin, Blood 3.3 g/dL (3.4-5.0); Albumin/Globulin Ratio 0.8 (0.8-1.8); Alk Phos 63 U/L (50-136); Anion Gap 5 mmol/L (6-16); Aspartate Aminotrans (AST/SGOT 8 U/L (12-37); Bilirubin, Total 1.6 mg/dL (0.1-1.0); Blood Urea Nitrogen 10 mg/dL (8-24); Bun/Creatinine Ratio 20.4 (12.0-20.0); CO2, Blood 26 mmol/L (21-32); Calcium, Blood 8.4 mg/dL (8.5-10.1); Chloride, Blood 102 mmol/L (98-108); Creatinine, Blood 0.49 mg/dL (0.40-1.00); Globulin, Blood 4.3 g/dL (2.2-4.0); Glomerular Filtration Rate >60 (60-); Glucose, Blood 191 mg/dL (70-99); Potassium, Blood 3.9 mmol/L (3.5-5.5); Sodium, Blood 133 mmol/L (136-145); Total Protein, Blood 7.6 g/dL (6.4-8.2)
[2021-02-03] MEDS ORDERED: CEPH500 PO (15:25)
== END 2021-02-03 15:33 | disposition home or self-care (01) ==
LOC: ER 13:42
PROVIDERS: Student in an Organized Health Care Education/Training Program
DX: L03.032 Cellulitis of left toe (principal); E11.621 Type 2 diabetes mellitus with foot ulcer; L97.521 Non-pressure chronic ulcer of other part of left foot limited to breakdown of skin; I10 Essential (primary) hypertension; E78.5 Hyperlipidemia, unspecified; Z88.8 Allergy status to other drugs, medicaments and biological substances; Z79.899 Other long term (current) drug therapy; Z79.4 Long term (current) use of insulin; Z79.82 Long term (current) use of aspirin; Z20.822 Contact with and (suspected) exposure to COVID-19
CPT/HCPCS: 36415; 80053; 83605; 85025; 99283

== ENCOUNTER 2021-02-05 00:51 | Day surgery (SDC) | payer OTHER ==
[~2021-02-05 00:51] MED LIST changes: +ADMELOG SO100 UNIT/2; +BASAGLAR K100 UNIT/1 SC; -BASAGLAR K100 UNIT/2 SC
== END 2021-02-05 23:03 | disposition home or self-care (01) ==
LOC: WOUND 00:51
DX: E11.621 Type 2 diabetes mellitus with foot ulcer (principal); L97.422 Non-pressure chronic ulcer of left heel and midfoot with fat layer exposed; L97.522 Non-pressure chronic ulcer of other part of left foot with fat layer exposed; L97.512 Non-pressure chronic ulcer of other part of right foot with fat layer exposed; E11.42 Type 2 diabetes mellitus with diabetic polyneuropathy; I87.2 Venous insufficiency (chronic) (peripheral); I10 Essential (primary) hypertension; Z88.8 Allergy status to other drugs, medicaments and biological substances
CPT/HCPCS: 87071; 87075; 87205; A9270

== ENCOUNTER 2021-02-07 09:41 | Day surgery (SDC) | payer OTHER ==
--- NOTE | 2021-02-07 10:45 | NUR ---
CALLED DR. LINDA ELAM OFFICE AND LEFT RESULTS OF ELEVATED BP'S AND PULSE. PT STATES NO H/A OR VISUAL CHANGES. PT ALSO STATES SHE TOOK HER PB MED THIS AM.
[2021-02-07 10:49] LABS: BASOPHILS ABSOLUTE AUTO 0.03 K/mm3 (0.00-0.23); BASOPHILS PERCENT AUTO 1 % (0-2); EOSINOPHILS ABSOLUTE AUTO 0.22 K/mm3 (0.00-0.68); EOSINOPHILS PERCENT AUTO 4 % (0-6); Hematocrit 38.9 % (33.0-51.0); Hemoglobin 12.9 g/dL (11.5-16.0); IMMATURE GRAN ABSOLUTE AUTO 0.02 K/mm3 (0.00-0.10); IMMATURE GRAN PERCENT AUTO 0 % (0-1); LYMPHOCYTES PERCENT AUTO 24 % (21-46); MONOCYTES ABSOLUTE AUTO 0.41 K/mm3 (0.16-1.47); MONOCYTES PERCENT AUTO 7 % (4-13); Mean Corpuscular HGB Conc 33.2 g/dL (31.5-36.5); Mean Corpuscular Volume 91 fL (80-100); Mean Platelet Volume 9.5 fL (9.1-12.4); NEUTROPHILS PERCENT AUTO 65 % (41-73); Platelet Count 386 K/mm3 (150-400); RDW Coefficient Variation 12.8 % (11.7-14.2); RDW Standard Deviation 42.5 fL (35.1-46.3); White Blood Cell Count 6.28 K/mm3 (4.00-11.30)
[2021-02-07 11:00] LABS: Alanine Aminotransfer (ALT/SGP 25 U/L (12-78); Albumin, Blood 3.2 g/dL (3.4-5.0); Albumin/Globulin Ratio 0.7 (0.8-1.8); Alk Phos 69 U/L (50-136); Anion Gap 4 mmol/L (6-16); Aspartate Aminotrans (AST/SGOT 15 U/L (12-37); Bilirubin, Total 0.6 mg/dL (0.1-1.0); Blood Urea Nitrogen 13 mg/dL (8-24); Bun/Creatinine Ratio 24.6 (12.0-20.0); CO2, Blood 31 mmol/L (21-32); Calcium, Blood 9.3 mg/dL (8.5-10.1); Chloride, Blood 104 mmol/L (98-108); Creatinine, Blood 0.53 mg/dL (0.40-1.00); Globulin, Blood 4.8 g/dL (2.2-4.0); Glomerular Filtration Rate >60 (60-); Glucose, Blood 190 mg/dL (70-99); Potassium, Blood 3.7 mmol/L (3.5-5.5); Sodium, Blood 139 mmol/L (136-145)
== END 2021-02-07 10:35 | disposition home or self-care (01) ==
LOC: ATC 09:41
PROVIDERS: Nurse Practitioner Family
DX: E11.621 Type 2 diabetes mellitus with foot ulcer (principal); L89.892 Pressure ulcer of other site, stage 2; E11.59 Type 2 diabetes mellitus with other circulatory complications; E11.42 Type 2 diabetes mellitus with diabetic polyneuropathy; E11.51 Type 2 diabetes mellitus with diabetic peripheral angiopathy without gangrene; I25.10 Atherosclerotic heart disease of native coronary artery without angina pectoris; I50.9 Heart failure, unspecified; Z79.4 Long term (current) use of insulin; Z88.8 Allergy status to other drugs, medicaments and biological substances
CPT/HCPCS: 80053; 85025; 86140; J0696

== ENCOUNTER 2021-02-08 02:54 | Day surgery (SDC) | payer OTHER | END 2021-02-08 23:11 | disposition home or self-care (01) | LOC: WOUND 02:54 | DX: E11.621 Type 2 diabetes mellitus with foot ulcer (principal); L97.522 Non-pressure chronic ulcer of other part of left foot with fat layer exposed; L89.892 Pressure ulcer of other site, stage 2; L03.032 Cellulitis of left toe; E11.42 Type 2 diabetes mellitus with diabetic polyneuropathy; E11.59 Type 2 diabetes mellitus with other circulatory complications; I87.2 Venous insufficiency (chronic) (peripheral) ==

== ENCOUNTER 2021-02-10 13:37 | Emergency (ER) | payer OTHER ==
[~2021-02-10] VITALS: Ht 162.6 cm; Wt 72.6 kg
[2021-02-10 14:40] LABS: BASOPHILS ABSOLUTE AUTO 0.03 K/mm3 (0.00-0.23); BASOPHILS PERCENT AUTO 1 % (0-2); EOSINOPHILS ABSOLUTE AUTO 0.27 K/mm3 (0.00-0.68); EOSINOPHILS PERCENT AUTO 4 % (0-6); Hematocrit 36.2 % (33.0-51.0); IMMATURE GRAN ABSOLUTE AUTO 0.02 K/mm3 (0.00-0.10); IMMATURE GRAN PERCENT AUTO 0 % (0-1); LYMPHOCYTES ABSOLUTE AUTO 1.67 K/mm3 (0.84-5.20); LYMPHOCYTES PERCENT AUTO 26 % (21-46); MONOCYTES ABSOLUTE AUTO 0.41 K/mm3 (0.16-1.47); MONOCYTES PERCENT AUTO 6 % (4-13); Mean Corpuscular HGB 29.9 pg (26.0-34.0); Mean Corpuscular HGB Conc 33.1 g/dL (31.5-36.5); Mean Corpuscular Volume 90 fL (80-100); Mean Platelet Volume 9.2 fL (9.1-12.4); NEUTROPHILS ABSOLUTE AUTO 4.09 K/mm3 (1.96-9.15); NEUTROPHILS PERCENT AUTO 63 % (41-73); Platelet Count 400 K/mm3 (150-400); RDW Coefficient Variation 12.7 % (11.7-14.2); RDW Standard Deviation 41.9 fL (35.1-46.3); Red Blood Cell Count 4.02 M/mm3 (3.80-5.20); White Blood Cell Count 6.49 K/mm3 (4.00-11.30)
== END 2021-02-10 15:07 | disposition home or self-care (01) ==
LOC: ER 13:37
PROVIDERS: Physician Assistant
DX: R23.3 Spontaneous ecchymoses (principal); I10 Essential (primary) hypertension; E11.9 Type 2 diabetes mellitus without complications; Z86.73 Personal history of transient ischemic attack (TIA), and cerebral infarction without residual deficits; Z79.899 Other long term (current) drug therapy; Z79.4 Long term (current) use of insulin; Z79.82 Long term (current) use of aspirin
CPT/HCPCS: 85025; 99283

== ENCOUNTER 2021-02-13 03:26 | Day surgery (SDC) | payer OTHER | END 2021-02-13 13:40 | disposition home or self-care (01) | LOC: ATC 03:26 | DX: E11.621 Type 2 diabetes mellitus with foot ulcer (principal); L97.909 Non-pressure chronic ulcer of unspecified part of unspecified lower leg with unspecified severity; L89.892 Pressure ulcer of other site, stage 2; E11.42 Type 2 diabetes mellitus with diabetic polyneuropathy; E11.59 Type 2 diabetes mellitus with other circulatory complications | CPT/HCPCS: 99211 ==

== ENCOUNTER 2021-02-13 03:58 | Day surgery (SDC) | payer OTHER | END 2021-02-13 23:39 | disposition home or self-care (01) | LOC: WOUND 03:58 | DX: E11.621 Type 2 diabetes mellitus with foot ulcer (principal); L97.522 Non-pressure chronic ulcer of other part of left foot with fat layer exposed; L97.512 Non-pressure chronic ulcer of other part of right foot with fat layer exposed; L89.892 Pressure ulcer of other site, stage 2; L03.032 Cellulitis of left toe; E11.42 Type 2 diabetes mellitus with diabetic polyneuropathy; E11.59 Type 2 diabetes mellitus with other circulatory complications; I87.2 Venous insufficiency (chronic) (peripheral); I10 Essential (primary) hypertension | CPT/HCPCS: A9270; G0463 ==

== ENCOUNTER 2021-02-20 14:01 | Inpatient (IN) | payer OTHER ==
[~2021-02-20] VITALS: Ht 162.6 cm; Wt 72.6 kg
[2021-02-20 14:25] LABS: BASOPHILS ABSOLUTE AUTO 0.04 K/mm3 (0.00-0.23); BASOPHILS PERCENT AUTO 1 % (0-2); EOSINOPHILS ABSOLUTE AUTO 0.24 K/mm3 (0.00-0.68); EOSINOPHILS PERCENT AUTO 3 % (0-6); Hematocrit 38.9 % (33.0-51.0); IMMATURE GRAN ABSOLUTE AUTO 0.02 K/mm3 (0.00-0.10); IMMATURE GRAN PERCENT AUTO 0 % (0-1); LYMPHOCYTES ABSOLUTE AUTO 2.03 K/mm3 (0.84-5.20); LYMPHOCYTES PERCENT AUTO 28 % (21-46); MONOCYTES ABSOLUTE AUTO 0.47 K/mm3 (0.16-1.47); MONOCYTES PERCENT AUTO 7 % (4-13); Mean Corpuscular HGB 29.8 pg (26.0-34.0); Mean Corpuscular HGB Conc 33.4 g/dL (31.5-36.5); Mean Corpuscular Volume 89 fL (80-100); Mean Platelet Volume 9.3 fL (9.1-12.4); NEUTROPHILS ABSOLUTE AUTO 4.35 K/mm3 (1.96-9.15); NEUTROPHILS PERCENT AUTO 61 % (41-73); Platelet Count 392 K/mm3 (150-400); RDW Coefficient Variation 13.1 % (11.7-14.2); RDW Standard Deviation 42.7 fL (35.1-46.3); Red Blood Cell Count 4.36 M/mm3 (3.80-5.20); White Blood Cell Count 7.15 K/mm3 (4.00-11.30)
[2021-02-20 14:35] LABS: Source, Urine Clean Catch
[2021-02-20 14:41] LABS: Appearance, Urine Clear (Clear); Bilirubin, Urine Neg (Neg); Blood, Urine Neg (Neg); Color, Urine Yellow (P-Yellow); Glucose Qualitative, Urine Neg (Neg); Ketones, Urine Neg (Neg); Leukocyte Esterase, Urine Neg (Neg); Nitrite, Urine Neg (Neg); Protein, Urine Neg (Neg); Specific Gravity, Urine 1.025 (1.003-1.022); Urobilinogen, Urine 1+ (Normal)
[2021-02-20 14:44] LABS: Alanine Aminotransfer (ALT/SGP 40 U/L (12-78); Albumin, Blood 3.3 g/dL (3.4-5.0); Albumin/Globulin Ratio 0.7 (0.8-1.8); Alk Phos 68 U/L (50-136); Anion Gap 4 mmol/L (6-16); Aspartate Aminotrans (AST/SGOT 21 U/L (12-37); Bilirubin, Total 0.8 mg/dL (0.1-1.0); Blood Urea Nitrogen 13 mg/dL (8-24); Bun/Creatinine Ratio 21.2 (12.0-20.0); CO2, Blood 27 mmol/L (21-32); Calcium, Blood 8.7 mg/dL (8.5-10.1); Chloride, Blood 106 mmol/L (98-108); Creatinine, Blood 0.61 mg/dL (0.40-1.00); Globulin, Blood 4.7 g/dL (2.2-4.0); Glomerular Filtration Rate >60 (60-); Glucose, Blood 160 mg/dL (70-99); Potassium, Blood 4.3 mmol/L (3.5-5.5); Sodium, Blood 137 mmol/L (136-145)
[2021-02-20 14:51] LABS: U Amphetamine Screen Not Detected; U Barbituate Screen Not Detected; U Benzodiazapine Screen DETECTED; U Buprenorphine Screen Not Detected; U Cannabinoids Screen Not Detected; U Cocaine Screen Not Detected; U Methadone Screen Not Detected; U Methamphetamine Screen Not Detected; U Opiates Screen Not Detected; U Oxycodone Screen Not Detected; U Phencyclidine Screen Not Detected; U Propoxyphene Screen Not Detected
[2021-02-20 17:30] LABS: Source, Urine Clean Catch
[2021-02-20 17:43] LABS: Appearance, Urine Clear (Clear); Bilirubin, Urine Neg (Neg); Blood, Urine Neg (Neg); Glucose Qualitative, Urine 2+ (Neg); Ketones, Urine 1+ (Neg); Leukocyte Esterase, Urine Neg (Neg); Nitrite, Urine Neg (Neg); Protein, Urine Neg (Neg); Urobilinogen, Urine NORM (Normal)
[2021-02-20 17:55] LABS: Color, Urine Yellow (P-Yellow)
[2021-02-20 18:52] LABS: SARS-Cov-2 (COVID-19) PCR, MMC NEGATIVE (NEGATIVE)
[2021-02-20 19:59] LABS: CHOL/HDL RATIO 3.4; Cholesterol 178 mg/dL (50-200); HDL Cholesterol 52 mg/dL (>39); Low Density Lipoprotein Chol 104 mg/dL (0-110); Triglycerides 112 mg/dL (30-160); Very Low Density Lipoprot Chol 22 mg/dL (6-32)
[2021-02-21 04:44] LABS: BASOPHILS ABSOLUTE AUTO 0.01 K/mm3 (0.00-0.23); BASOPHILS PERCENT AUTO 0 % (0-2); EOSINOPHILS ABSOLUTE AUTO 0.02 K/mm3 (0.00-0.68); EOSINOPHILS PERCENT AUTO 0 % (0-6); Hematocrit 39.6 % (33.0-51.0); Hemoglobin 13.6 g/dL (11.5-16.0); IMMATURE GRAN ABSOLUTE AUTO 0.02 K/mm3 (0.00-0.10); IMMATURE GRAN PERCENT AUTO 0 % (0-1); LYMPHOCYTES ABSOLUTE AUTO 1.32 K/mm3 (0.84-5.20); LYMPHOCYTES PERCENT AUTO 16 % (21-46); MONOCYTES ABSOLUTE AUTO 0.46 K/mm3 (0.16-1.47); MONOCYTES PERCENT AUTO 5 % (4-13); Mean Corpuscular HGB 30.3 pg (26.0-34.0); Mean Corpuscular HGB Conc 34.3 g/dL (31.5-36.5); Mean Corpuscular Volume 88 fL (80-100); Mean Platelet Volume 9.4 fL (9.1-12.4); NEUTROPHILS ABSOLUTE AUTO 6.69 K/mm3 (1.96-9.15); NEUTROPHILS PERCENT AUTO 79 % (41-73); Platelet Count 415 K/mm3 (150-400); RDW Coefficient Variation 13.1 % (11.7-14.2); Red Blood Cell Count 4.49 M/mm3 (3.80-5.20); White Blood Cell Count 8.52 K/mm3 (4.00-11.30)
[2021-02-21 05:07] LABS: Alanine Aminotransfer (ALT/SGP 40 U/L (12-78); Albumin, Blood 3.3 g/dL (3.4-5.0); Albumin/Globulin Ratio 0.7 (0.8-1.8); Alk Phos 73 U/L (50-136); Anion Gap 7 mmol/L (6-16); Aspartate Aminotrans (AST/SGOT 20 U/L (12-37); Bilirubin, Total 1.1 mg/dL (0.1-1.0); Blood Urea Nitrogen 13 mg/dL (8-24); Bun/Creatinine Ratio 25.6 (12.0-20.0); CO2, Blood 26 mmol/L (21-32); Calcium, Blood 9.2 mg/dL (8.5-10.1); Chloride, Blood 101 mmol/L (98-108); Creatinine, Blood 0.51 mg/dL (0.40-1.00); Globulin, Blood 4.8 g/dL (2.2-4.0); Glomerular Filtration Rate >60 (60-); Glucose, Blood 164 mg/dL (70-99); Potassium, Blood 3.6 mmol/L (3.5-5.5); Sodium, Blood 134 mmol/L (136-145); Total Protein, Blood 8.1 g/dL (6.4-8.2)
--- NOTE | 2021-02-21 06:44 | NUR ---
New admit. Pt has some L sided deficits from previous stroke. Pt can feel and move L side with moderate cooker cleaner strength and dorsiflexion on the Left side. she can wiggle and feelher toes and fingures on the Left side. Right side is flaccid. Pt cannot feel toes and cannot follow commannds on the Right arm not R leg. Pt states she can feel my touch on the R arm. Pt is using a bed antony and is on bedrest at this time. Swallows pills well with water. Speech is a little delayed. Can express needs. Call light within reach. Bed in lowest position.
--- NOTE | 2021-02-21 07:19 | NUR ---
PATIENT OFF UNIT FOR MRI.
--- NOTE | 2021-02-21 16:18 | NUR ---
DISCHARGE PLANNING: SPOKE TO PATIENT'S DAUGHTER KADEN BY PHONE, GAVE UPDATE. SHE ASKS THAT SHE BE CALLED WITH D/C PLANS: [phone].
--- NOTE | 2021-02-21 19:56 | NUR ---
SHIFT SUMMARY: SWALLOW EVAL COMPLETED, RECS ORDERED. NO CHANGES TO NEURO EXAM THROUGHOUT THE DAY: R SIDE FLACCID, L FACIAL DROOP, HAVING HORIZONTAL AND VERTICAL NYSTAGMUS, SLIGHT DIZZINESS WITH MOVEMENT. WORKED WITH PT/OT. MRI AND CARDIAC ECHO COMPLETE. TOLERATING PO INTAKE. GAVE TELEPHONE UPDATES TO PT'S MOTHER, DAUGHTER, AND SISTER.
[2021-02-22 04:43] LABS: BASOPHILS ABSOLUTE AUTO 0.02 K/mm3 (0.00-0.23); BASOPHILS PERCENT AUTO 0 % (0-2); EOSINOPHILS ABSOLUTE AUTO 0.09 K/mm3 (0.00-0.68); EOSINOPHILS PERCENT AUTO 1 % (0-6); Hematocrit 42.6 % (33.0-51.0); Hemoglobin 14.2 g/dL (11.5-16.0); IMMATURE GRAN ABSOLUTE AUTO 0.02 K/mm3 (0.00-0.10); IMMATURE GRAN PERCENT AUTO 0 % (0-1); LYMPHOCYTES ABSOLUTE AUTO 1.02 K/mm3 (0.84-5.20); LYMPHOCYTES PERCENT AUTO 12 % (21-46); MONOCYTES ABSOLUTE AUTO 0.44 K/mm3 (0.16-1.47); MONOCYTES PERCENT AUTO 5 % (4-13); Mean Corpuscular HGB 29.6 pg (26.0-34.0); Mean Corpuscular HGB Conc 33.3 g/dL (31.5-36.5); Mean Corpuscular Volume 89 fL (80-100); Mean Platelet Volume 9.9 fL (9.1-12.4); NEUTROPHILS PERCENT AUTO 82 % (41-73); Platelet Count 431 K/mm3 (150-400); RDW Coefficient Variation 13.2 % (11.7-14.2); RDW Standard Deviation 42.7 fL (35.1-46.3); Red Blood Cell Count 4.79 M/mm3 (3.80-5.20); White Blood Cell Count 8.89 K/mm3 (4.00-11.30)
[2021-02-22 05:09] LABS: Alanine Aminotransfer (ALT/SGP 35 U/L (12-78); Albumin, Blood 3.2 g/dL (3.4-5.0); Albumin/Globulin Ratio 0.7 (0.8-1.8); Alk Phos 73 U/L (50-136); Anion Gap 5 mmol/L (6-16); Aspartate Aminotrans (AST/SGOT 18 U/L (12-37); Blood Urea Nitrogen 16 mg/dL (8-24); Bun/Creatinine Ratio 30.7 (12.0-20.0); CO2, Blood 28 mmol/L (21-32); Calcium, Blood 9.3 mg/dL (8.5-10.1); Chloride, Blood 100 mmol/L (98-108); Creatinine, Blood 0.52 mg/dL (0.40-1.00); Globulin, Blood 4.9 g/dL (2.2-4.0); Glomerular Filtration Rate >60 (60-); Glucose, Blood 206 mg/dL (70-99); Magnesium, Blood 2.3 mg/dL (1.6-2.4); Phosphorus, Blood 3.4 mg/dL (2.5-4.9); Potassium, Blood 3.6 mmol/L (3.5-5.5); Sodium, Blood 133 mmol/L (136-145); Total Protein, Blood 8.1 g/dL (6.4-8.2)
--- NOTE | 2021-02-22 06:32 | NUR ---
SHIFT SUMMARY PT HAD A DIFFICULT TIME GETTING COMFORTABLE THIS EVENING. REPOSITIONED FREQUENTLY. PT REMAINS MOSTLY FLACCID TO R SIDE, MINIMAL MOVEMENT IN RLE. SLURRED SPEECH AND LEFT SIDED FACIAL DROOP. NYSTAGMUS. HAD ONE EPISODE OF EMESIS THIS EVENING. DENIED NAUSEA AFTER EMESIS. HOWEVER PT STATED THAT SHE FREQUENTLY FEELS DIZZY. BED BATH GIVEN THIS EVENING. ULCERS NOTED TO LEFT TOES. VITAL SIGNS STABLE. WILL CONTINUE TO MONITOR.
--- NOTE | 2021-02-22 18:19 | NUR ---
Shift Summary, The patient is A/OX4 to person, place, time and event. The patient is pleasent and cooperative with care. She was tired today and seemed withdrawn. The patient is bed bound. She requires assistance adjusting her position because she is unable to tinner automatic her right arm and has decreased ROM of right leg. Neuro check remain unchanged. The patient has c/o nausea throughout the day but does not want nausea medications. She has eaten small amounts of her dinner but her intake in low and she stated that she food is bland. She reffused to work with PT but this nurse talked with the patient and we set a goal to work with PT but stop if she feels too nauseous and the patient agreed and tollerated well. The patient was able to lift her right leg today. The patient is currently lying in bed watching tv.
[2021-02-23 04:56] LABS: BASOPHILS ABSOLUTE AUTO 0.02 K/mm3 (0.00-0.23); BASOPHILS PERCENT AUTO 0 % (0-2); EOSINOPHILS ABSOLUTE AUTO 0.12 K/mm3 (0.00-0.68); EOSINOPHILS PERCENT AUTO 2 % (0-6); Hematocrit 43.1 % (33.0-51.0); Hemoglobin 14.3 g/dL (11.5-16.0); IMMATURE GRAN ABSOLUTE AUTO 0.03 K/mm3 (0.00-0.10); IMMATURE GRAN PERCENT AUTO 0 % (0-1); LYMPHOCYTES ABSOLUTE AUTO 1.35 K/mm3 (0.84-5.20); LYMPHOCYTES PERCENT AUTO 17 % (21-46); MONOCYTES ABSOLUTE AUTO 0.49 K/mm3 (0.16-1.47); MONOCYTES PERCENT AUTO 6 % (4-13); Mean Corpuscular HGB 29.7 pg (26.0-34.0); Mean Corpuscular HGB Conc 33.2 g/dL (31.5-36.5); Mean Corpuscular Volume 90 fL (80-100); Mean Platelet Volume 9.6 fL (9.1-12.4); NEUTROPHILS ABSOLUTE AUTO 6.01 K/mm3 (1.96-9.15); NEUTROPHILS PERCENT AUTO 75 % (41-73); Platelet Count 433 K/mm3 (150-400); RDW Coefficient Variation 13.4 % (11.7-14.2); RDW Standard Deviation 43.8 fL (35.1-46.3); Red Blood Cell Count 4.81 M/mm3 (3.80-5.20); White Blood Cell Count 8.02 K/mm3 (4.00-11.30)
[2021-02-23 05:34] LABS: Alanine Aminotransfer (ALT/SGP 31 U/L (12-78); Albumin, Blood 3.1 g/dL (3.4-5.0); Albumin/Globulin Ratio 0.7 (0.8-1.8); Alk Phos 72 U/L (50-136); Anion Gap 8 mmol/L (6-16); Aspartate Aminotrans (AST/SGOT 17 U/L (12-37); Blood Urea Nitrogen 23 mg/dL (8-24); Bun/Creatinine Ratio 43.5 (12.0-20.0); CO2, Blood 26 mmol/L (21-32); Calcium, Blood 9.1 mg/dL (8.5-10.1); Chloride, Blood 100 mmol/L (98-108); Creatinine, Blood 0.53 mg/dL (0.40-1.00); Globulin, Blood 4.7 g/dL (2.2-4.0); Glomerular Filtration Rate >60 (60-); Glucose, Blood 195 mg/dL (70-99); Magnesium, Blood 2.2 mg/dL (1.6-2.4); Phosphorus, Blood 3.8 mg/dL (2.5-4.9); Potassium, Blood 3.9 mmol/L (3.5-5.5); Sodium, Blood 134 mmol/L (136-145); Total Protein, Blood 7.8 g/dL (6.4-8.2)
--- NOTE | 2021-02-23 06:14 | NUR ---
No acute changes or significant events occurred overnight
--- NOTE | 2021-02-23 19:31 | NUR ---
sHIFT Summary, The patient is A/Ox4 TO person, place, time and event. The patient was pleasent and cooperative with care. She had a bright affact this shift, and when asked she stated she felt much better since working with physcial therapy and being able to lift her right leg. The patient is bed ridden and she has left sided weaknes from hx of CVA and LUE/LLE she does not have sensation in. She is unable to move her RUE. The patient can feed herself with minimal assistance setting up her tray. She needed to be repositioned multiple times throughout the shift to assist with her right side. She ate better today during meals then yesterday and requested extra snacks. The patient rerquested medication for a BM and she was medicated per EMAR but she did not have a BM this shift. No changes in neuro defficits this shift. The patient is currently sleeping.
--- NOTE | 2021-02-24 17:48 | NUR ---
SHIFT SUMMARY PATIENT IS ALERT AND ORIENTED. HAS A RIGHT SIDED DEFICIT, WITH SLURRED SPEECH. THE PATIENT WILL CALL APPROPRIATELY. THE PATIENT'S BLOOD PRESSURE HAS BEEN MONITORED THROUGHOOUT THIS SHIFT AND MEDICATED PER THE MAR. PATIENT WORKED WITH PHYSICAL THERAPY THIS SHIFT. THE PATIENT WILL POSSIBLY DISCHARGE TO A SNF. NO ACUTE CHANGES THIS SHIFT.
--- NOTE | 2021-02-25 06:48 | NUR ---
PATIENT COMPLAINS OFF STUFFY NOSE AND CONGESTION RELATED TO SEASONAL ALLERGIES. MD CALLED AND ValerieYRTEIrma ORDERED. PHARMACY ONLY CARRY THE EXCHANGE, CLARITIN. SHE WILL START CLARITIN 10MG TODAY. SHE WAS NPO FOR LABS. LABS COLLECTED. PATIENT CAN RESUME DIET. NO OTHER CHANGES IN CONDITION NOTED OVERNIGHT. NO SIGNIFICANT EVENTS NOTED.
--- NOTE | 2021-02-25 15:50 | NUR ---
Referred by pt's step mother to make a visit to pt. Pt presented laying in bed after just having a stroke. Pt appeared weary and did not speak much. Due to the stroke pt struggle to speak but got out what she could. I offered a prayer and pt shared she was grateful for the prayer.
--- NOTE | 2021-02-25 18:34 | NUR ---
SHIFT SUMMARY PATIENT IS ALERT AND ORIENTED, AND COOPERATIVE WITH CARE. PATIENT HAS BEEN HAVING A POOR APPETITE THIS SHIFT. PATIENT STATES SHE ALWAYS EATS POORLY EVEN AT HOME. THIS NURSE STATED TO THE PATIENT THE IMPORTANCE OF PROPER NUTRITION AND HEALING. PATIENT HAS BEEN TURNED Q2 THIS SHIFT. NO ACUTE CHANGES, WILL CONTINUE TO MONITOR UNTIL SHIFT REPORT.
--- NOTE | 2021-02-26 05:36 | NUR ---
BIOMEDICAL ANALYTICAL SCIENTIST SUMMARY PT A/O X4. RIGHT ARM IS FLACCID, RIGHT LEG HAS MINMAL GROSS MOVEMENT. LEFT SIDE IS WEAK. PRESENTS WITH SLURRED SPEECH. PUPILS ARE EQUAL AND REACTIVE TO LIGHT. PT PREFERS TO TAKE MEDICATIONS WITH PUDDING. REPOSITIONING PROVIDED THROUGHOUT THE NIGHT. PT BEEN COMPLAINING OF RIGHT LEG PAIN, MEDICATED WITH TYLENOL. ASSISTING PT TO STRETCH AND BEND THE RIGHT LEG ALSO HAS HELPED. BED ALARM ON, CALL LIGHT WITHIN REACH, WILL CONTINUE TO MONITOR.
[2021-02-26 08:08] LABS: HBSAG SCREEN Negative (Negative); HEP B CORE AB, TOT Negative (Negative); HEP C VIRUS AB <0.1 (0.0-0.9)
--- NOTE | 2021-02-26 18:44 | NUR ---
SHIFT SUMMARY PT IS AO AND CALLS APPROPRIATELY. PT C/O RLE PAIN THAT IS RELIEVED BY BENDING THE LEG. PT UP TO CHAIR USING LIFT THIS SHIFT. PT WORKED WITH PT/OT. PT APPETITE IS GOOD. PT IS IN BED, CALL LIGHT IN REACH, LOW POSITION.
--- NOTE | 2021-02-27 06:25 | NUR ---
VETERINARY PATHOLOGIST SUMMARY ADMITTED FOR ISCHEMIC STROKE. PT IS FULL CODE. PLAN FOR D/C TO IRU OR SNF. PT REQUESTED MULTIPLE TIMES FOR HELP WITH REPOSITIONING HER RIGHT LEG. PT C/O PAIN TO THE RIGHT HIP AND SHOULDER - TYLENOL ORDER UPDATED TO INCLUDE PAIN AND MEDICATED X1. PT HAD TWO "SMEAR" BMS LAST NIGHT AND IS CONCERNED. CALL LIGHT WITHIN REACH. NO OTHER CONCERNS THIS SHIFT.
[2021-02-27 18:24] LABS: SARS-Cov-2 (COVID-19) PCR, MMC NEGATIVE (NEGATIVE)
[2021-02-28 04:26] LABS: BASOPHILS ABSOLUTE AUTO 0.04 K/mm3 (0.00-0.23); BASOPHILS PERCENT AUTO 1 % (0-2); EOSINOPHILS ABSOLUTE AUTO 0.24 K/mm3 (0.00-0.68); EOSINOPHILS PERCENT AUTO 4 % (0-6); Hematocrit 40.3 % (33.0-51.0); Hemoglobin 13.5 g/dL (11.5-16.0); IMMATURE GRAN ABSOLUTE AUTO 0.02 K/mm3 (0.00-0.10); IMMATURE GRAN PERCENT AUTO 0 % (0-1); LYMPHOCYTES ABSOLUTE AUTO 1.61 K/mm3 (0.84-5.20); LYMPHOCYTES PERCENT AUTO 24 % (21-46); MONOCYTES ABSOLUTE AUTO 0.55 K/mm3 (0.16-1.47); MONOCYTES PERCENT AUTO 8 % (4-13); Mean Corpuscular HGB 30.4 pg (26.0-34.0); Mean Corpuscular HGB Conc 33.5 g/dL (31.5-36.5); Mean Corpuscular Volume 91 fL (80-100); NEUTROPHILS PERCENT AUTO 64 % (41-73); Platelet Count 333 K/mm3 (150-400); RDW Coefficient Variation 13.4 % (11.7-14.2); RDW Standard Deviation 45.1 fL (35.1-46.3); Red Blood Cell Count 4.44 M/mm3 (3.80-5.20); White Blood Cell Count 6.86 K/mm3 (4.00-11.30)
[2021-02-28 04:45] LABS: Anion Gap 4 mmol/L (6-16); Blood Urea Nitrogen 19 mg/dL (8-24); Bun/Creatinine Ratio 35.5 (12.0-20.0); CO2, Blood 30 mmol/L (21-32); Calcium, Blood 8.9 mg/dL (8.5-10.1); Chloride, Blood 104 mmol/L (98-108); Creatinine, Blood 0.54 mg/dL (0.40-1.00); Glomerular Filtration Rate >60 (60-); Glucose, Blood 102 mg/dL (70-99); Magnesium, Blood 2.5 mg/dL (1.6-2.4); Phosphorus, Blood 3.6 mg/dL (2.5-4.9); Potassium, Blood 4.1 mmol/L (3.5-5.5); Sodium, Blood 138 mmol/L (136-145)
--- NOTE | 2021-02-28 05:24 | NUR ---
CAD TECHNICIAN SUMMARY ADMITTED FOR ISCHEMIC STROKE. PT IS A FULL CODE. PT CONTINUES TO HAVE WEAKNESS AND FLACIDNESS TO THE RIGHT ARM WITH SOME GROSS MOVEMENT OF THE LEFT LEG. PT REQUESTING REPOSITIONING FREQUENTLY. MEDICATED FOR CONSTIPATION X1 AND PAIN X1. NO OTHER CONCERNS THIS SHIFT.
--- NOTE | 2021-03-01 06:09 | NUR ---
PATIENT IS ASLEEP LYING IN BED. NO EVIDENCE OF PAIN OR RESP DISTRESS.VS WNL, NO ACUTE CHANGES OVERNIGHT. BED IN LOW POSITION AND CALL LIGHT WITHIN REACH.
--- NOTE | 2021-03-01 17:22 | NUR ---
PT AOX3 AND COOPERATIVE OF CARE. PT STILL CONTINUES WITH R SIDED WEAKNESS. PT REPORTED CONSTIPATION AND DR VERONICA WAS NOTIFIED AND CHANGES MADE TO EMAR. SUPPOSITORY WAS ADMINISTERED PER EMAR AND THIS WAS EFFECTIVE. PT IS A LIFT TO CHAIR AT THIS TIME. WILL CONTINUE TO MONITOR, CALL LIGHT WITHIN REACH.
--- NOTE | 2021-03-02 06:53 | NUR ---
PATIENT IS ASLEEP LYING IN BED. TURNED AND REPOSITION THROUGHOUT NIGHT. NO ACUTE CHANGES. BED IN LOW POSITION AND CALL LIGHT WITHIN REACH.
--- NOTE | 2021-03-02 18:50 | NUR ---
PT MOSTLY PLEASANT TODAY. RT SIDE MOSTLY FLACID, LITTLE GROSS MOVEMENT ON LEG. NO CHANGES NOTED. DAUGHTER CALLED. STATES SHE MAY HAVE UPSET HER, THAT THE MIGHT NOT BE TOO HAPPY. PT STATES NO CONCERNS WITH US AT THIS TIME. BED IN LOW POSITION, CALL LITE IN REACH, CALLS APPROP
--- NOTE | 2021-03-03 06:29 | NUR ---
PATIENT IS ASLEEP LYING IN BED. NO ACUTE CHANGES OVERNIGHT. RR EVEN AND UNLABORED. NO OTHER APPARENT NEEDS AT THIS TIME. PT TURNED AND REPOSITIONED THROUGHOUT NIGHT. BED IN LOW POSITION AND CALL LIGTH WITHIN REACH.
--- NOTE | 2021-03-03 09:13 | NUR ---
0815 PT NAUSEOUS. MED WITH FEI
--- NOTE | 2021-03-03 18:15 | NUR ---
PT PLEASNT TODAY, ENCOURAGED HER TO CONTINUE DOING MUCH EXERCISING POSSIBLE. MOR THE BETTER. REMINDED HER THAT IF SHE CAN IMPROVE, IT WILL BE MUCH DEPENDANT ON HER WILLINGNESS TO WORK WITH THERAPY AND BEYOND. CAN MOVE RT LEG GROSS MOVEMENT ARM STILL FLACID. NO NEW CONCERNS NOTED GLORY. BED IN LOW POSITION, CALLLITE IN REACH, CALLS APPROP
--- NOTE | 2021-03-04 05:53 | NUR ---
PATIENT IS ASLEEP LYING IN BED. NO ACUTE CHANGES OVERNIGHT, VS WNL. RR EVEN AND UNLABORED. NOOTHER APPARENT NEEDS AT THIS TIME. BED IN LOW POSITION AND CALL LIGHT WITHIN REACH.
--- NOTE | 2021-03-04 16:58 | NUR ---
SHIFT SUMMARY: PT A/O X3, PLEASANT AND COOPERATIVE. PT IS ALEXIS TO CHAIR AND SPENT PART OF THE DAY IN HER CHAIR. SHE WORKED WITH PT MINIMALLY. PT HAS CHRONIC HIP PAIN WHICH HAS BEEN MANAGED WITH TYLENOL-MEDICATED TWO TIMES THIS SHIFT. PT HAS OCCASIONAL NON PRODUCTIVE WET COUGH. EXCORIATION TO BOTTOM NOTED AND CALMOSEPTINE APPLIED WITH ATTENDS CHANGES. PT CONTINUES TO HAVE RIGHT SIDED WEAKNESS, ABLE TO LEFT ARM TO FEED SELF.
--- NOTE | 2021-03-05 04:10 | NUR ---
SUMMARY PT HAD DIFFICULTY SLEEPING. PT MAY BENEFIT FROM NEW SLEEP AID. PT CONTINUED TO COMPLAIN OF RIGHT HIP/ LEG PAIN. PT REFUSED TYLENOL FOR MOST OF SHIFT. PT FINALLY AGREED AND HAD SOME RELIEF. PT ALSO COMPLAINED OF NAUSEA AND WAS TX PER EMAR W/ RELIEF. PT SLEEPING NOW AND IN NO DISTRESS. CALL LIGHT IN REACH AND BED ALARM ON.
[2021-03-05 11:48] LABS: Source, Urine Voided
[2021-03-05 11:53] LABS: Appearance, Urine Clear (Clear); Bilirubin, Urine Neg (Neg); Blood, Urine 2+ (Neg); Color, Urine Amber (P-Yellow); Glucose Qualitative, Urine Neg (Neg); Ketones, Urine Neg (Neg); Leukocyte Esterase, Urine 3+ (Neg); Nitrite, Urine Neg (Neg); Protein, Urine 2+ (Neg); Urobilinogen, Urine 1+ (Normal)
--- NOTE | 2021-03-05 12:32 | NUR ---
DR. VERONICA NOTIFIED VIA TC OF BLADDER SCAN RESULT. ORDER GIVEN TO PLACE ROSE CATHETER.
[2021-03-05 12:33] LABS: Bacteria Mod /hpf; Hyaline Casts 0-2 /lpf (0-2); Mucus Light (0-Heavy); Squamous Epithelial Cells Mod /hpf (Few)
[2021-03-05 12:34] LABS: Calcium Oxalate Crystals Rare /hpf; Transitional Epithelial Cells Mod /hpf (0-Rare)
--- NOTE | 2021-03-05 18:01 | NUR ---
PT BEGAN VOIDING BLOOD TINGED URINE IN CATHETER. PT DENIES PAIN TO VAGINAL AREA. NO SIGNS OF TRAUMA TO AREA. DR. VERONICA NOTIFIED VIA TC. NO NEW ORDERS AT THIS TIME.
--- NOTE | 2021-03-05 19:47 | NUR ---
SHIFT SUMMARY: PT A/O X 3 ALEXIS TO CHAIR. R SIDE FLACCID. ROSE CATHETER PLACED TODAY FOR RETENTION. PT DRAINED 1850 CC FROM CATHETER ON PLACEMENT. POST DINNER PT NOTED TO HAVE BLOOD TINGED URINE AND DR. VERONICA NOTIFIED. ORDER FOR RENAL ULTRASOUND PLACED BY DR. VERONICA. PT REPORTING HER HIP PAIN, ABD PAIN RESOLVED BUT DEVELOOPED A HEADACHE. TYLENOL WAS GIVEN AND QUEVEDO RESOLVED. NO OTHER ACUTE CONCERNS AT THIS TIME. REPORTED TO ONCOMING RN.
--- NOTE | 2021-03-06 05:33 | NUR ---
60 year old with acute CVA with rt sided flaccid upper & lower. Sigifredo lift to chair not OOB this shift. Needs extensive assist for bed mobility toileting. [facility] ground meat , no mixed consistancy, nectar thick liquids, aspiration precautions. Ferrara cath was placed on day shift for PVR greater than 1000 ml with reportedly drainage of 1850 ml urine. Has renal US ordered for this AM. On cipro for UTI. DC planning for SNF for stroke rehab.
--- NOTE | 2021-03-06 07:27 | NUR ---
PT with acute CVA with rt sided flaccid has frias cath for acute urinary retention. Incontinent of bowel this AM. Skin of buttocks excoriated. Protective sacral foam provided after skin care. Able to communicate, does not use call ingram. DC planning for SNF with stroke rehab.
--- NOTE | 2021-03-06 14:04 | NUR ---
Met with pt today; her speech is improving post CVA. She denies pain at the moment, but she did c/o significant low abd pain this am, before she was found to have approx 1000mL of urine in her bladder post void. Ferrara cath placed, and pt stated relief. She has not been accepted yet, by either IRU or rehab. Unsure what the plan is next, but will continue to discuss termination clerk care plans tomorrow.
--- NOTE | 2021-03-06 18:57 | NUR ---
SHIFT SUMMARY: NO ACUTE EVENTS. C/O GENERALIZED PAIN; MEDICATED WITH TYLENOL, ADEQUATE RELIEF. R SIDE REMAINS FLACCID; JACK FROM OT RECOMMENDED R ARM BE PLACED IN SLING TO PREVENT FURTHER SUBLUXATION OF SHOULDER. ROSE DRAINING KANCHAN URINE. DM WOUNDS ON L FOOT UNCHANGED. TURNING [id number] TOLERATED; TENDS TO SCRUNCH DOWN IN THE BED AFTER BEING BOOSTED.
--- NOTE | 2021-03-07 04:53 | NUR ---
60 year old Female IDDM with acute stroke with lt sided flaccid is not out of bed this shit. Needs tom lift to get up to chair. Continues to work with PT OT ST. PT has rt shoulder pain from rt sided hemiparesis medicated with tylenol 325 mg to 650 mg with helpful effect. PT has modified diet mech soft no mixed consistancy nectar thick liquid. Aspiration precautions with meds whole in pudding given several times. Skin issues with scattered dried scabs present lt foot lt knee skin care provided. Incont of bowel & has frias cath for acute urinary retention.
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
--- NOTE | 2021-03-08 06:06 | NUR ---
SHIFT SUMMARY PT A&O. ABLE TO MAKE NEEDS KNOWN. PT'D DIET UPGRADED TO SOFT FOOD, THIN LIQUIDS. PT HAS ROSE DRAINING DARK YELLOW URINE. PT C/O PAIN ON LEFT SHOULDER, PRN PAIN MED ADMINISTERED WITH GOOD EFFECTS. ADLS PROVIDED, SAFETY MEASURES IN PLACE. WILL CONTINUE TO MONITOR.
[2021-03-08 12:25] LABS: Hematocrit 36.4 % (33.0-51.0); Mean Corpuscular HGB 30.1 pg (26.0-34.0); Mean Corpuscular Volume 91 fL (80-100); Mean Platelet Volume 10.6 fL (9.1-12.4); Platelet Count 262 K/mm3 (150-400); RDW Coefficient Variation 13.1 % (11.7-14.2); RDW Standard Deviation 43.5 fL (35.1-46.3); Red Blood Cell Count 3.99 M/mm3 (3.80-5.20); White Blood Cell Count 7.57 K/mm3 (4.00-11.30)
[2021-03-08 13:31] LABS: Alanine Aminotransfer (ALT/SGP 25 U/L (12-78); Albumin, Blood 2.5 g/dL (3.4-5.0); Albumin/Globulin Ratio 0.6 (0.8-1.8); Alk Phos 68 U/L (50-136); Anion Gap 5 mmol/L (6-16); Aspartate Aminotrans (AST/SGOT 18 U/L (12-37); Bilirubin, Total 0.7 mg/dL (0.1-1.0); Blood Urea Nitrogen 12 mg/dL (8-24); Bun/Creatinine Ratio 28.6 (12.0-20.0); CO2, Blood 28 mmol/L (21-32); Calcium, Blood 8.4 mg/dL (8.5-10.1); Chloride, Blood 104 mmol/L (98-108); Creatinine, Blood 0.42 mg/dL (0.40-1.00); Globulin, Blood 3.9 g/dL (2.2-4.0); Glomerular Filtration Rate >60 (60-); Glucose, Blood 208 mg/dL (70-99); Potassium, Blood 3.8 mmol/L (3.5-5.5); Sodium, Blood 137 mmol/L (136-145); Total Protein, Blood 6.4 g/dL (6.4-8.2)
--- NOTE | 2021-03-08 14:48 | NUR ---
Follow up visit with pt today, she is alert, oriented and pleasant. During our last visit, I left a POLST and AD at the bedside, and pt told me then she would "Look through them". She hasn't done that yet, so I asked if we could review the POLST today, and she states, "of course!" She continues to have flaccidity of right side, but is able to read and speak with very little difficulty. She chooses to be a full code, and would like full treatment at this time. She states she will fill out the AD with the assistance of her when he comes to see her again.
--- NOTE | 2021-03-08 17:17 | NUR ---
SHIFT SUMMARY PATIENT DENIES PAIN, NAUSEA, AND SHORTNESS OF BREATH. PATIENT WORKED WITH PT, OT, AND SPEECH TODAY. PATIENT UP TO RECLINER WITH STEDY LIFT. ROSE PATENT AND DRAINING. SOME COUGHIG WITH MEALS TODAY BUT PATIENT ABLE TO CLEAR SECRETIONS EASILY. PATIENT EXPRESSED CONCERN OVER DISCHARGING HOME.
--- NOTE | 2021-03-08 18:02 | NUR ---
PORFIRIO signed by pt, she will remain a full code. Signed by Dr. Peterson also, and sent to Medical Records, and original given back to pt.
--- NOTE | 2021-03-08 23:24 | NUR ---
patient had bowel movement and she put her hands in the diaper and it was all over her hands,legs and her gown the nurse and I had to clean her up and changed th e linens on the bed.
--- NOTE | 2021-03-09 06:32 | NUR ---
END OF SHIFT SUMMARY: Pt alert and oriented. right sided deficits from CVA. Incontinent with stool. Ferrara draining well per gravity. No new events overnight. Pt able to voice needs. Call ligth within reach. Pt resting at this time.
--- NOTE | 2021-03-09 18:38 | NUR ---
PT PLEASANT TODAY. ENCOURAGED TO PUSH SELF TO MOVE, WALK. GET MORE PT/OT. HOPING TO DISCHARGE FRIDAY. SNF FOR MORE THERAPY. NO OTHER NEW CONCERNS NOTED TODAY. BED INLOW POSITION, CALL LITE IN REACH, CALLS APROP
[2021-03-10 04:51] LABS: Hemoglobin 11.5 g/dL (11.5-16.0); Mean Corpuscular HGB 30.5 pg (26.0-34.0); Mean Corpuscular HGB Conc 33.8 g/dL (31.5-36.5); Mean Corpuscular Volume 90 fL (80-100); Mean Platelet Volume 10.2 fL (9.1-12.4); Platelet Count 261 K/mm3 (150-400); RDW Coefficient Variation 13.2 % (11.7-14.2); RDW Standard Deviation 43.5 fL (35.1-46.3); Red Blood Cell Count 3.77 M/mm3 (3.80-5.20); White Blood Cell Count 5.62 K/mm3 (4.00-11.30)
[2021-03-10 05:37] LABS: Anion Gap 5 mmol/L (6-16); Blood Urea Nitrogen 13 mg/dL (8-24); Bun/Creatinine Ratio 28.3 (12.0-20.0); CO2, Blood 29 mmol/L (21-32); Calcium, Blood 8.3 mg/dL (8.5-10.1); Chloride, Blood 105 mmol/L (98-108); Creatinine, Blood 0.46 mg/dL (0.40-1.00); Glomerular Filtration Rate >60 (60-); Glucose, Blood 125 mg/dL (70-99); Potassium, Blood 3.7 mmol/L (3.5-5.5); Sodium, Blood 139 mmol/L (136-145)
--- NOTE | 2021-03-10 06:41 | NUR ---
END OF SHIFT SUMMARY: Pt A&O, can voice needs. No new complaints overnight. VSS. R side deficits. Frequents turning and repositioning. incontinent with stool. Ferrara draining well to gravity. Call light within reach, bed in lowest position.
--- NOTE | 2021-03-11 05:44 | NUR ---
END OF SHIFT SUMMARY: Pt is A&Ox4. R side deficits, frequent turns and repositioning. No acute events overnight. Pt is able to express needs, call light within reach, bed in lowest position.
--- NOTE | 2021-03-12 16:45 | NUR ---
PATIENT IS ON ROOM AIR, NO DISTRESS NOTED. NO BREATHING TREATMENT NEEDED TODAY.
--- NOTE | 2021-03-13 17:09 | NUR ---
SUMMARY PT RESTING QUIETLY IN BED, WAKES EASILY, HAS BEEN COOPERATIVE WITH CARE, WORKED WITH PT/OT, HAS BEEN UP IN THE CHAIR, MED PER EMAR FOR C/O PAIN, VSS WILL CONT TO MONITOR
--- NOTE | 2021-03-14 18:09 | NUR ---
SUMMARY PT SITTING UP IN BED EATING DINNER, PT HAS BEEN PLEASANT AND COOPERATIVE WITH CARE, UP TO THE CHAIR TODAY WITH ASSIST, PT WORKED WITH PT/OT, CARE MANAGEMENT WORKING ON A DISCHARGE PLAN, VSS, WILL CONT TO MONITOR
--- NOTE | 2021-03-15 06:28 | NUR ---
PATIENT IS AWAKE LYING IN BED. COMPLAINED OF MILD GENERALIZED PAIN, TREATED PER MAR. NO OTHER NEEDS REPORTED NO ACUTE CHANGES OVERNIGHT. BED IN LOW POSITION AND CALL LIGHT WITHIN REACH.
--- NOTE | 2021-03-15 17:33 | NUR ---
SHIFT SUMMARY PATIENT WAS TRANSFERRED TO MY CARE FROM [facility] AT APPROX 1600. PATIENT IS ALERT AND ORIENTED X3. PATIENT IS PLEASENT AND COOPERATIVE WITH CARE. NO ACUTE EVENTS DURING MY CARE. PATIENT WAS MEDICATED FOR PAIN WITH TYLENOL. WILL CONTINUE TO MONITOR UNTIL SHIFT CHANGE.
--- NOTE | 2021-03-16 06:39 | NUR ---
END OF SHIFT SUMMARY: Pt is A&Ox4. R side deficits from CVA. Needs frequent turning and repositioning. VSS. Pt having retension after frias was d/c'd. confirmed by bladder scans. New frias reinserted. Pt tolerated procedure well. Frias drainig well per gravity. Continue to monitor pt.
--- NOTE | 2021-03-16 19:27 | NUR ---
PT AO.PT ASSESSMENT REMAINS UNCHANGED,PT HAS NO ACUTE EVENTS T/O SHIFT.PT ROSE DRAINAGE TO GRAVITY.PT IN BED,BED IN LOW POSITION,CALL LIGTH IN REACH WILL CONTINUE TO MONITOR.
--- NOTE | 2021-03-17 05:41 | NUR ---
RAIL BONDER SUMMARY PATIENT HAD NIL FRESH COMPLAINT. WILL CONTINUE TO MONITOR THE PT.
--- NOTE | 2021-03-17 19:04 | NUR ---
PT RESTING IN BED,HAD A COUPLE OF BMS,VERY PLEASANT,UP TO CHAIR WITH PT THS AM,BED ALARM ON BED IN LOW POSITION CALL LIGHT IN REACH WILL CONTINUE MONITOR
--- NOTE | 2021-03-18 04:04 | NUR ---
CONSTRUCTION ESTIMATOR SUMMARY PATIENT HAS A FAIR SHIFT, SHE HAD NO COMPLAINT AT ALL. HER VITALS WERE STABLE. WILL CONTINUE TO MONITOR PATIENT.
[2021-03-18 05:09] LABS: BASOPHILS ABSOLUTE AUTO 0.03 K/mm3 (0.00-0.23); BASOPHILS PERCENT AUTO 1 % (0-2); EOSINOPHILS ABSOLUTE AUTO 0.22 K/mm3 (0.00-0.68); EOSINOPHILS PERCENT AUTO 4 % (0-6); Hematocrit 35.5 % (33.0-51.0); Hemoglobin 11.8 g/dL (11.5-16.0); IMMATURE GRAN ABSOLUTE AUTO 0.02 K/mm3 (0.00-0.10); IMMATURE GRAN PERCENT AUTO 0 % (0-1); LYMPHOCYTES ABSOLUTE AUTO 1.72 K/mm3 (0.84-5.20); LYMPHOCYTES PERCENT AUTO 30 % (21-46); MONOCYTES ABSOLUTE AUTO 0.32 K/mm3 (0.16-1.47); MONOCYTES PERCENT AUTO 6 % (4-13); Mean Corpuscular HGB 30.3 pg (26.0-34.0); Mean Corpuscular HGB Conc 33.2 g/dL (31.5-36.5); Mean Corpuscular Volume 91 fL (80-100); Mean Platelet Volume 10.2 fL (9.1-12.4); NEUTROPHILS ABSOLUTE AUTO 3.43 K/mm3 (1.96-9.15); NEUTROPHILS PERCENT AUTO 60 % (41-73); Platelet Count 283 K/mm3 (150-400); RDW Coefficient Variation 13.7 % (11.7-14.2); RDW Standard Deviation 45.5 fL (35.1-46.3); Red Blood Cell Count 3.89 M/mm3 (3.80-5.20); White Blood Cell Count 5.74 K/mm3 (4.00-11.30)
[2021-03-18 05:40] LABS: Alanine Aminotransfer (ALT/SGP 61 U/L (12-78); Albumin, Blood 2.6 g/dL (3.4-5.0); Albumin/Globulin Ratio 0.7 (0.8-1.8); Alk Phos 62 U/L (50-136); Anion Gap 5 mmol/L (6-16); Aspartate Aminotrans (AST/SGOT 32 U/L (12-37); Bilirubin, Total 0.6 mg/dL (0.1-1.0); Blood Urea Nitrogen 16 mg/dL (8-24); Bun/Creatinine Ratio 33.7 (12.0-20.0); CO2, Blood 27 mmol/L (21-32); Calcium, Blood 8.8 mg/dL (8.5-10.1); Chloride, Blood 106 mmol/L (98-108); Creatinine, Blood 0.48 mg/dL (0.40-1.00); Globulin, Blood 3.8 g/dL (2.2-4.0); Glomerular Filtration Rate >60 (60-); Glucose, Blood 143 mg/dL (70-99); Potassium, Blood 3.8 mmol/L (3.5-5.5); Sodium, Blood 138 mmol/L (136-145); Total Protein, Blood 6.4 g/dL (6.4-8.2)
--- NOTE | 2021-03-18 18:49 | NUR ---
PT HAS NO ACUTE EVENTS T/O,PT VISITED,AND DAUGHTER CALLED,GAVE UPDATE TO BOTH OF THEM,PT HAD 5 BMS T/O SHIFT,PT WORKED WITH PHYSICAL THERAPY TODAY,PT IS BED,BED ALARM,CALL LIGHT AND BELONGINGS IN REACH,BED IN LOW POSITION,WILL CONTINUE TO MONITOR.
--- NOTE | 2021-03-19 04:16 | NUR ---
MANAGER SHELL SUMMARY PATIENT HAD A FAIR SHIFT. LODGED NIL FRESH COMPLAINT. WILL CONTINUE TO MONITOR PATIENT.
[2021-03-19] MEDS ORDERED: CLOT10 MT (14:29)
[2021-03-19] MEDS ORDERED: Flonase 0.05% N16 GM (14:29)
[2021-03-19] MEDS ORDERED: MELATONIN TR 51 EAC1 PO (14:30)
[2021-03-19] MEDS ORDERED: HYDR10 PO (14:30)
[2021-03-19] MEDS ORDERED: METO50 PO (14:30)
[2021-03-19] MEDS ORDERED: OMEP20ER PO (14:31)
[2021-03-19] MEDS ORDERED: MIRALAX17 GM PO (14:31)
[2021-03-19] MEDS ORDERED: CLOP75 PO (14:32)
[2021-03-19] MEDS ORDERED: PROM25 PO (14:32)
--- NOTE | 2021-03-19 17:59 | NUR ---
SHIFT SUMMARY PATIENT DENIES PAIN, NAUSEA, AND SHORTNESS OF BREATH. PATIENT IS A 2 PERSON STAND PIVOT ASSIST WITH FWW. ROSE IS PATENT AND DRAINING TO GRAVITY. PATIENT IS EATING AND DRINKING WELL. DISCHARGE PACKET EXPLAINED TO PATIENT. PATIENT STATED UNDERSTANDING. PACKET PACKED WITH BELONGINGS. PATIENT DRESSED AND READY FOR DISCHARGE. PATIENT DAUGHTER IS PICKING PATIENT UP AROUND 2100. PATIENT IS GOING VIA WHEELCHAIR.
--- NOTE | 2021-03-19 21:57 | NUR ---
PATIENT'S STABLE, ASSESSMENT DONE AND DOCUMENTED. MEDS PASSED AND SHE IS IN A STABLE CONDITION, PATIENT'S FAMILY CAME TO PICK HER UP. SHE LEFT ON A WHEELCHAIR WITH THE RETAIL SUPPORT ASSOCIATE. ON ROOM AIR. IN NO DISTRESS.
== END 2021-03-19 22:01 | disposition home or self-care (01) | DRG 65 ==
LOC: ER 14:01 → MEDS 18:49 → ENPENDDIS 03-19 12:07 → MEDS 03-19 22:01
PROVIDERS: Family Medicine; Internal Medicine; Physician Assistant; ADMIT Hospitalist
PROC: 3E02340 Introduction of Influenza Vaccine into Muscle, Percutaneous Approach (ICD-10-PCS; principal; 2021-03-02)
PROC: 3E0234Z Introduction of Serum, Toxoid and Vaccine into Muscle, Percutaneous Approach (ICD-10-PCS; 2021-03-02)
DX: I63.89 Other cerebral infarction (principal); I16.1 Hypertensive emergency; I69.354 Hemiplegia and hemiparesis following cerebral infarction affecting left non-dominant side; Z20.822 Contact with and (suspected) exposure to COVID-19; Z23 Encounter for immunization; I44.0 Atrioventricular block, first degree; K59.00 Constipation, unspecified; R47.1 Dysarthria and anarthria; R23.3 Spontaneous ecchymoses; E78.5 Hyperlipidemia, unspecified; E11.22 Type 2 diabetes mellitus with diabetic chronic kidney disease; J44.9 Chronic obstructive pulmonary disease, unspecified; B37.9 Candidiasis, unspecified; I12.9 Hypertensive chronic kidney disease with stage 1 through stage 4 chronic kidney disease, or unspecified chronic kidney disease; R33.9 Retention of urine, unspecified; I16.0 Hypertensive urgency; N18.9 Chronic kidney disease, unspecified; Z98.51 Tubal ligation status; Z98.890 Other specified postprocedural states; Z79.4 Long term (current) use of insulin; Z79.899 Other long term (current) drug therapy; Z79.82 Long term (current) use of aspirin; Z88.1 Allergy status to other antibiotic agents; Z87.891 Personal history of nicotine dependence
CPT/HCPCS: 36415; 70450; 70496; 70498; 70551; 71046; 73502; 74230; 76770; 80048; 80053; 80061; 80069; 81001; 81003; 82595; 82947; 83036; 83735; 84100; 84443; 84484; 85025; 85027; 86038; 86141; 86430; 86704; 86708; 86803; 87086; 87340; 90732; 92526; 92610; 92611; 93005; 93010; 93306; 94640; 94760; 94762; 96374-59; 96375-59; 96376-59; 97110; 97112; 97162; 97166; 97530; 97535; 99285-25; A9270; G0480; J0360; J1650; J1815; J2405; J2550; Q2038; Q9967; U0004